=== PATIENT | female | born 1940 | race Caucasian/White ===

== ENCOUNTER 2018-04-27 08:19 | Inpatient (IN) | payer MEDICARE, OTHER ==
--- NOTE | 2018-04-27 08:39 | PDOC ---
History of Present Illness - General Chief Complaint: Syncope/Near Syncope Stated Complaint: SYNCOPE/NEAR SYNCOPE Time Seen by Provider: 04/27/18 08:29 History Source: Patient Exam Limitations: No Limitations - History of Present Illness Initial Comments: 04/27/18 10:13 Patient is a 78-year-old female with past medical history of hyperlipidemia, who presents to the emergency department today for syncopal episode occurring this morning. She states she got out of bed and was walking to the kitchen when she passed out. She states that she does not remember what happened and she woke up on the floor. She denies headache, chest pain, difficulty breathing, nausea prior to passing out. When she woke up she noticed a large bump to her forehead. Pt admits to cold like symptoms over the past three days. Past History - Travel Traveled outside of the country in the last 30 days: No Close contact w/someone who was outside of country & ill: No - Past Medical History Allergies/Adverse Reactions: Allergies Allergy/AdvReac Type Severity Reaction Status Date / Time No Known Allergies Allergy Verified 04/27/18 08:22 Home Medications: Ambulatory Orders Ranitidine [Zantac -] 150 mg PO ASDIR 04/27/18 Simvastatin [Zocor -] mg PO HS 04/27/18 Zolpidem Tartrate [Ambien] 5 mg PO HS 04/27/18 COPD: No GI Disorders: Yes (reflux) Hypercholesterolemia: Yes Other medical history: insomnia - Surgical History Appendectomy: Yes - Suicide/Smoking/Psychosocial Hx Smoking History: Never smoked Hx Alcohol Use: No Drug/Substance Use Hx: No Substance Use Type: None Review of Systems - Review of Systems Able to Perform ROS?: Yes Comments:: 04/27/18 08:45 CONSTITUTIONAL: Absent: fever, chills, diaphoresis, generalized weakness, malaise, loss of appetite HEENT: Present: throat pain Absent: rhinorrhea, nasal congestion,throat swelling, difficulty swallowing, mouth swelling, ear pain, eye pain, visual Changes CARDIOVASCULAR: Present: LOC Absent: chest pain, lpalpitations, irregular heart rate, peripheral edema RESPIRATORY: Present: cough Absent: shortness of breath, dyspnea with exertion, orthopnea, wheezing, stridor, hemoptysis GASTROINTESTINAL: Present: nausea Absent: abdominal pain, abdominal distension, vomiting, diarrhea , constipation, melena, hematochezia GENITOURINARY: Absent: dysuria, frequency, urgency, hesitancy, hematuria, flank pain, genital pain MUSCULOSKELETAL: Absent: myalgia, arthralgia, joint swelling SKIN: Absent: rash, itching, pallor HEMATOLOGIC/IMMUNOLOGIC: Absent: easy bleeding, easy bruising, lymphadenopathy, frequent infections ENDOCRINE: Absent: unexplained weight gain, unexplained weight loss, heat intolerance, cold intolerance NEUROLOGIC: Absent: headache, focal weakness or paresthesias, dizziness, unsteady gait, seizure, mental status changes, bladder or bowel incontinence PSYCHIATRIC: Absent: anxiety, depression, suicidal or homicidal ideation, hallucinations. Is the patient limited American proficient: No *Physical Exam - Vital Signs Last Vital Signs Temp Pulse Resp BP Pulse Ox 98.3 F 74 20 123/58 L 96 04/27/18 08:25 04/27/18 08:25 04/27/18 08:25 04/27/18 08:25 04/27/18 08:25 - Physical Exam Comments: 04/27/18 08:50 GENERAL: Well developed, well nourished. Awake and alert. No acute distress. Large hematoma to the L forehead. HEENT: Normocephalic, atraumatic. PERRLA, EOMI. No conjunctival pallor. Sclera are non- icteric. Moist mucous membranes. Oropharynx is clear. NECK: Supple. Full ROM. No midline tenderness. No JVD. Carotid pulses 2+ and symmetric , without bruits. No thyromegaly. No lymphadenopathy. CARDIOVASCULAR: Regular rate and rhythm. No murmurs, rubs, or gallops. Distal pulses are 2+ and symmetric. PULMONARY: No evidence of respiratory distress. Lungs clear to auscultation bilaterally. No wheezing, rales or rhonchi. ABDOMINAL: Soft. Non-tender. Non-distended. No rebound or guarding. No organomegaly. Normoactive bowel sounds. MUSCULOSKELETAL Normal range of motion at all joints. No bony deformities or tenderness. No CVA tenderness. EXTREMITIES: No cyanosis. No clubbing. No edema. No calf tenderness. SKIN: Warm and dry. Normal capillary refill. No rashes. No jaundice. NEUROLOGICAL: Alert, awake, appropriate. Cranial nerves 2-12 intact. No deficits to light touch and temperature in face, upper extremities and lower extremities. No motor deficits in the in face, upper extremities and lower extremities. Normoreflexic in the upper and lower extremities. Normal speech. Toes are down- going bilaterally. Gait is normal without ataxia. PSYCHIATRIC: Cooperative. Good eye contact. Appropriate mood and affect. Moderate Sedation - Procedure Monitoring Vital Signs: Procedure Monitoring Vital Signs Temperature 98.3 F 04/27/18 08:25 Pulse Rate 74 04/27/18 08:25 Respiratory Rate 20 04/27/18 08:25 Blood Pressure 123/58 L 04/27/18 08:25 O2 Sat by Pulse Oximetry (%) 96 04/27/18 08:25 Heart Score/ECG Review - History History: Moderately suspicious - Electrocardiogram EKG: Normal - Age Age: >/= 65 - Risk Factors Risk Factors Heart Score: Yes Hx Hypercholesterolemia Based on the list above the patient has:: 1-2 risk factors - Troponin Troponin: </= normal limit - Score Heart Score - Total: 4 ED Treatment Course - LABORATORY CBC & Chemistry Diagram: 04/27/18 09:10 04/27/18 09:10 Medical Decision Making - Medical Decision Making 04/27/18 12:34 Pt is a 78 y/o F with PMH of hyperlipidemia, who presents to the ED for a syncopal episode this morning. Pt also states she had cold like symptoms for the past 3 days -On exam, pt is AAOx3, neurologically intact. Hematoma to the L scalp. No lacerations noted. No pain to neck, trunk or extremities. -Pt had second near-syncopal episode in the ED. Episode lasted approximately 30 seconds and pt became bradycardic and diaphoretic. Symptoms resolved themselves. -Lab work shows no leukocytosis, or shift. H&H is stable. Troponin negative. -Lactic acid elevated at 2.2; two liters of fluid given. -Flu A positive -Tamiflu given -Head CT and C-Spine CT are negative for fractures, or bleed -EKG: rate 69 BPM, NSR. Normal intervals and axis. No acute ST-T wave changes -Suspect syncopal episodes from dehydration related to influenza diagnosis, but will admit to tele for further cardiovascular work up -Case discussed with SILVIA Sharp for Dr. Huff. Agrees to admission. *DC/Admit/Observation/Transfer Diagnosis at time of Disposition: Influenza A Syncope Qualifiers: Syncope type: unspecified Qualified Code(s): R55 - Syncope and collapse - Discharge Dispostion Condition at time of disposition: Guarded Decision to Admit order: Yes - Referrals - Patient Instructions - Post Discharge Activity
[2018-04-27] MEDS ORDERED: SODIUM CHLORIDE 1,000 ML IV STA ×2 (08:41→10:14)
[2018-04-27] MEDS ORDERED: ACETAMINOPHEN 1000 MG/100 ML VIAL (NON FORMULARY) IVPB ONE (08:41)
[2018-04-27] MEDS ORDERED: ONDANSETRON 4 MG/2 ML VIAL IVPUSH ONE (08:41)
[2018-04-27] MEDS ORDERED: ONDANSETRON 4 MG/2 ML VIAL ONE (09:15)
[2018-04-27] MEDS ORDERED: ACETAMINOPHEN INJECTION 100 ML IVPB ONE (09:15)
[2018-04-27 09:32] LABS: BASO % 0.8 % (0-2.0); EOS % 0.5 % (0-4.5); HEMATOCRIT 37.2 % (32.4-45.2); HEMOGLOBIN 13.1 GM/dL (10.7-15.3); LYMPH % 27.6 % (8-40); MCH 31.7 pg (25.7-33.7); MCHC 35.2 g/dl (32.0-36.0); MEAN CELL VOLUME 90.1 fl (80-96); MEAN PLT VOLUME 8.1 fl (7.5-11.1); MONO % 8.5 % (3.8-10.2); NEUT % 62.6 % (42.8-82.8); PLATELET COUNT 228 K/MM3 (134-434); RBC 4.13 M/mm3 (3.60-5.2); RDW 13.4 % (11.6-15.6); WHITE BLOOD COUNT 6.2 K/mm3 (4.0-10.0)
[2018-04-27 09:46] LABS: INR 1.06 (0.83-1.09); PROTHROMBIN TIME (PATIENT) 12.5 SEC (9.7-13.0)
[2018-04-27] MEDS ORDERED: OSELTAMIVIR PHOSPHATE 75 MG CAPSULE PO ONE (10:13)
[2018-04-27 10:35] LABS: ALBUMIN 3.4 g/dl (3.4-5.0); ALK PHOS 72 U/L (45-117); ANION GAP 7 MMOL/L (8-16); BILIRUBIN,TOTAL 0.2 mg/dL (0.2-1); BLOOD UREA NITROGEN 11 mg/dL (7-18); CALCIUM 8.4 mg/dL (8.5-10.1); CHLORIDE 108 mmol/L (98-107); CO2 27 mmol/L (21-32); CREATININE 0.9 mg/dL (0.55-1.3); GLUCOSE,RANDOM 150 mg/dL (74-106); MAGNESIUM 2.4 mg/dL (1.8-2.4); POTASSIUM 4.4 mmol/L (3.5-5.1); SGOT/AST 35 U/L (15-37); SGPT/ALT 22 U/L (13-61); SODIUM 141 mmol/L (136-145); TOT PROT 6.6 g/dl (6.4-8.2)
[2018-04-27] MEDS ORDERED: OSELTAMIVIR PHOSPHATE 75 MG CAPSULE ONE (11:43)
[2018-04-27 12:05] LABS: URINE APPEARANCE SLCLOUDY; URINE BILIRUBIN NEGATIVE (<2.0 mg/dL); URINE COLOR LTYELLOW; URINE GLUCOSE (UA) NEGATIVE (NEGATIVE); URINE KETONE TRACE (NEGATIVE); URINE LEUK ESTERASE 1+ (NEGATIVE); URINE NITRITE NEGATIVE (NEGATIVE); URINE PROTEIN NEGATIVE (NEGATIVE); URINE UROBILINOGEN NEGATIVE mg/dL (0.2-1.0)
[2018-04-27 12:12] LABS: EPI CELLS RARE /HPF (FEW); URINE BACTERIA RARE /hpf (NONE SEEN); URINE MUCUS RARE
--- NOTE | 2018-04-27 15:50 | ECHO ---
Name: GEORGINA ANDREWS Exam:Adult Echocardiogram Study Date: 04/27/2018 03:12 PM Age: 78 yrs Reason For Study: SYNCOPE Height: 63 in Weight: 140 lb BSA: 1.7 m2 MMode/2D Measurements & Calculations IVSd: 1.0 cm Ao root diam: 2.3 cm LVIDd: 3.7 cm ACS: 1.9 cm LVIDs: 2.9 cm LVPWd: 1.5 cm EDV(Teich): 58.0 ml LVOT diam: 1.9 cm ESV(Teich): 31.2 ml RV S Claudy: 10.7 cm/sec Doppler Measurements & Calculations Med Peak E' Claudy: 6.5 cm/sec Lat Peak E' Claudy: 8.1 cm/sec Left Ventricle Left ventricular systolic function is normal. Ejection Fraction = 50-55%. Right Ventricle The right ventricle is normal in size and function. Atria Normal left and right atrial size and function. Mitral Valve The mitral valve is normal in structure and function. There is no mitral valve stenosis. There is mil d mitral regurgitation. Tricuspid Valve The tricuspid valve is normal in structure and function. Aortic Valve The aortic valve opens well. There is mild aortic sclerosis.;. No hemodynamically significant valvula r aortic stenosis. No aortic regurgitation is present. Pulmonic Valve The pulmonic valve is not well seen, but is grossly normal. There is no pulmonic valvular stenosis. T here is no pulmonic valvular regurgitation. Great Vessels The aortic root is normal size. Pericardium/Pleura There is pericardial thickening and/or a small pericardial effusion. The pericardial space suggests o rganizing pericardial effusion. There are no echocardiographic indications of cardiac tamponade. Interpretation Summary Left ventricular systolic function is normal. Ejection Fraction = 50-55%. The right ventricle is normal in size and function. There is mild mitral regurgitation. The aortic valve opens well. There is mild aortic sclerosis.; There is pericardial thickening and/or a small pericardial effusion. The pericardial space suggests organizing pericardial effusion. There are no echocardiographic indications of cardiac tamponade. MD Johnson *Marlon 04/27/2018 03:50 PM
[2018-04-27 18:59] VITALS: BMI 25.7
--- NOTE | 2018-04-27 19:13 | EKG ---
Test Reason : Blood Pressure : / mmHG Vent. Rate : 069 BPM Atrial Rate : 069 BPM P-R Int : 124 ms QRS Dur : 086 ms QT Int : 376 ms P-R-T Axes : -18 -08 048 degrees QTc Int : 402 ms NORMAL SINUS RHYTHM CANNOT RULE OUT INFERIOR INFARCT , AGE UNDETERMINED ABNORMAL ECG NO PREVIOUS ECGS AVAILABLE Confirmed by MEGAN KHANNA MD ([id number]) on 04/27/2018 7:13:20 PM Referred By: Confirmed By:MEGAN KHANNA MD
[2018-04-27] MEDS: RANITIDINE HCL 150 MG TABLET (FP) PO SCH (21:48)
[2018-04-27] MEDS: ATORVASTATIN CA 10 MG TABLET (FP) PO SCH (21:48)
[2018-04-27] MEDS ORDERED: ZOLPIDEM TARTRATE 5 MG TABLET PO PRN (22:00)
[2018-04-28 07:57] LABS: BASO % 0.7 % (0-2.0); EOS % 0.9 % (0-4.5); HEMATOCRIT 33.8 % (32.4-45.2); HEMOGLOBIN 11.9 GM/dL (10.7-15.3); LYMPH % 58.7 % (8-40); MCH 31.6 pg (25.7-33.7); MCHC 35.2 g/dl (32.0-36.0); MEAN CELL VOLUME 89.9 fl (80-96); MEAN PLT VOLUME 7.7 fl (7.5-11.1); MONO % 9.5 % (3.8-10.2); NEUT % 30.2 % (42.8-82.8); PLATELET COUNT 196 K/MM3 (134-434); RBC 3.77 M/mm3 (3.60-5.2); RDW 13.5 % (11.6-15.6); WHITE BLOOD COUNT 3.2 K/mm3 (4.0-10.0)
[2018-04-28 08:43] LABS: ANION GAP 5 MMOL/L (8-16); BLOOD UREA NITROGEN 8 mg/dL (7-18); CALCIUM 8.3 mg/dL (8.5-10.1); CHLORIDE 109 mmol/L (98-107); CO2 28 mmol/L (21-32); CREATININE 0.7 mg/dL (0.55-1.3); GLUCOSE,RANDOM 84 mg/dL (74-106); POTASSIUM 4.3 mmol/L (3.5-5.1); SODIUM 143 mmol/L (136-145)
[2018-04-28] MEDS: RANITIDINE HCL 150 MG TABLET (FP) PO SCH ×2 (12:00→21:20)
--- NOTE | 2018-04-28 14:48 | HP ---
Admitting History and Physical - Admission History of Present Illness: Patient is a 78-year-old female with past medical history of hyperlipidemia, who presents to the emergency department today for syncopal episode occurring this morning. She states she got out of bed and was walking to the kitchen when she passed out. She states that she does not remember what happened and she woke up on the floor. She denies headache, chest pain, difficulty breathing, nausea prior to passing out. When she woke up she noticed a large bump to her forehead. Pt admits to cold like symptoms over the past three days. 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 Reproductive: Yes: Postmenopausal ...: No - Smoking History Smoking history: Never smoked Have you smoked in the past 12 months: No - Alcohol/Substance Use Hx Alcohol Use: No - Social History Usual Living Arrangement: Yes: With Child ADL: Family Assistance Home Medications - Allergies Allergies/Adverse Reactions: Allergies Allergy/AdvReac Type Severity Reaction Status Date / Time No Known Allergies Allergy Verified 04/27/18 08:22 - Home Medications Home Medications: Ambulatory Orders Ranitidine [Zantac -] 150 mg PO ASDIR 04/27/18 Simvastatin [Zocor -] mg PO HS 04/27/18 Zolpidem Tartrate [Ambien] 5 mg PO HS 04/27/18 Review of Systems - Review of Systems Constitutional: reports: Chills, Fever, Loss of Appetite, Malaise, Weakness Eyes: reports: No Symptoms HENT: reports: No Symptoms Neck: reports: No Symptoms Cardiovascular: denies: Chest Pain, Palpitations Respiratory: reports: Cough, Wheezing. denies: SOB, SOB on Exertion Gastrointestinal: reports: No Symptoms Genitourinary: reports: No Symptoms Breasts: reports: No Symptoms Reported Musculoskeletal: reports: No Symptoms Integumentary: reports: No Symptoms Neurological: reports: Pre-Existing Deficit Hematology/Lymphatic: reports: No Symptoms Psychiatric: reports: Depression Physical Examination Vital Signs: Vital Signs Temperature 97.9 F 04/28/18 06:00 Pulse Rate 58 L 04/28/18 06:00 Respiratory Rate 18 04/28/18 06:00 Blood Pressure 127/63 04/28/18 06:00 O2 Sat by Pulse Oximetry (%) 96 04/28/18 09:00 Labs: CBC, BMP 04/28/18 07:00 04/28/18 07:00 Problem List - Problems (1) Dementia Code(s): F03.90 - UNSPECIFIED DEMENTIA WITHOUT BEHAVIORAL DISTURBANCE (2) Influenza A Code(s): J10.1 - FLU DUE TO OTH IDENT INFLUENZA VIRUS W OTH RESP MANIFEST (3) Syncope Code(s): R55 - SYNCOPE AND COLLAPSE Qualifiers: Syncope type: unspecified Qualified Code(s): R55 - Syncope and collapse (4) Spinal stenosis at L4-L5 level Code(s): M48.06 - SPINAL STENOSIS, LUMBAR REGION * DO NOT USE *
--- NOTE | 2018-04-28 15:12 | CON.NEURO ---
Consult Consult Specialty:: NEUROLOGY-[facility] - History of Present Illness History of Present Illness: Patient is a 78-year-old female with past medical history of hyperlipidemia, who presents to the emergency department today for syncopal episode occurring this morning. She states she got out of bed and was walking to the kitchen when she passed out. She states that she does not remember what happened and she woke up on the floor. She denies headache, chest pain, difficulty breathing, nausea prior to passing out. When she woke up she noticed a large bump to her forehead. Pt admits to cold like symptoms over the past three days. Pt. tells me she had a sensation "as if i am going to pass out "(lightheadedness ") before passing out. Denies numbness/weakness/extranneous movements and all other neurologic symptoms. ED Note-Pt had second near-syncopal episode in the ED. Episode lasted approximately 30 seconds and pt became bradycardic and diaphoretic. Symptoms resolved themselves. -Lab work shows no leukocytosis, or shift. H&H is stable. Troponin negative. -Lactic acid elevated at 2.2; two liters of fluid given. -Flu A positive -Tamiflu given -Head CT and C-Spine CT are negative for fractures, or bleed -EKG: rate 69 BPM, NSR. Normal intervals and axis. No acute ST-T wave changes -Suspect syncopal episodes from dehydration related to influenza diagnosis, but will admit to tele for further cardiovascular work up -Case discussed with SILVIA Sharp for Dr. Huff. Agrees to admission. 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 ...: No - Alcohol/Substance Use Hx Alcohol Use: No - Smoking History Smoking history: Never smoked Have you smoked in the past 12 months: No - Social History ADL: Family Assistance Home Medications - Allergies Allergies/Adverse Reactions: Allergies Allergy/AdvReac Type Severity Reaction Status Date / Time No Known Allergies Allergy Verified 04/27/18 08:22 - Home Medications Home Medications: Ambulatory Orders Ranitidine [Zantac -] 150 mg PO ASDIR 04/27/18 Simvastatin [Zocor -] mg PO HS 04/27/18 Zolpidem Tartrate [Ambien] 5 mg PO HS 04/27/18 Physical Exam-Neuro Vital Signs: Vital Signs Temperature 97.9 F 04/28/18 06:00 Pulse Rate 58 L 04/28/18 06:00 Respiratory Rate 18 04/28/18 06:00 Blood Pressure 127/63 04/28/18 06:00 O2 Sat by Pulse Oximetry (%) 96 04/28/18 09:00 Labs: CBC, BMP 04/28/18 07:00 04/28/18 07:00 INR, PTT INR 1.06 (0.83-1.09) 04/27/18 09:10 - Neuro Exam Level Of Consciousness: Yes: Alert, Oriented to Person, Oriented to Place, Oriented to Time Mini Mental Exam: Intact att/conc DTR's: 1+ Left Brachioradialis, 1+ Right Brachioradialis, 1+ Left Achilles, 1+ Right Achilles, 2+ Left Bicep, 2+ Right Bicep, 2+ Left Tricep, 2+ Right Tricep Motor Strength: 5/5: Left Arm, Right Arm, Left Leg, Right Leg Gait: Normal Imaging - Results Cat Scan: Report Reviewed (Without acute abn.) Assessment/Plan Pt. appears to have had a syncopal episode?? dehydration/influenza. No evid. she had a seizure. Would cont. current care, please call as needed. Thank Melissa ram MD
--- NOTE | 2018-04-28 17:33 | PN ---
Progress Note (short form) - Note Progress Note: patient seen and examined in room daughter at bedside coughing tokerating PO well Vital Signs Period Temp Pulse Resp BP Sys/[place] Pulse Ox Last 24 Hr 97.9 F-99.4 F 52-72 18-20 110-134/57-74 96-98 neck supple heart S1/S2 re lung coarse rhonchi bilat abd soft non tender ext no edema no calf tenderness CBC, BMP 04/28/18 07:00 04/28/18 07:00 = influenza ++ Microbiology 04/27/18 11:30 Urine - Urine Clean Catch Urine Culture - Preliminary Lactose Fermenting Neg Bacilli Active Medications Albuterol/Ipratropium (Duoneb -) 1 amp NEB RQID [facility] Atorvastatin Calcium (Lipitor -) 10 mg PO HS [facility] Last Admin: 04/27/18 21:48 Dose: 10 mg Guaifenesin (Mucinex -) 600 mg PO BID [facility] Oseltamivir Phosphate (Tamiflu -) 75 mg PO BID [facility] Stop: 05/03/18 21:59 Ranitidine HCl (Zantac -) 150 mg PO BID [facility] Last Admin: 04/28/18 12:00 Dose: 150 mg Zolpidem Tartrate (Ambien -) 5 mg PO HS PRN PRN Reason: INSOMNIA # Syncope 2/2 dehydaration / influenza # INfluenza tamiflu nebulizer QID probable d/c in am Problem List - Problems (1) Dementia Code(s): F03.90 - UNSPECIFIED DEMENTIA WITHOUT BEHAVIORAL DISTURBANCE (2) Influenza A Code(s): J10.1 - FLU DUE TO OTH IDENT INFLUENZA VIRUS W OTH RESP MANIFEST (3) Syncope Code(s): R55 - SYNCOPE AND COLLAPSE Qualifiers: Syncope type: unspecified Qualified Code(s): R55 - Syncope and collapse (4) Spinal stenosis at L4-L5 level Code(s): M48.06 - SPINAL STENOSIS, LUMBAR REGION * DO NOT USE *
[2018-04-28] MEDS: ALBUTEROL SO4 2.5/IPRATROPIUM 0.5 INH SOL 3 ML VIAL.NEB. NEB SCH (20:18)
[2018-04-28] MEDS: ATORVASTATIN CA 10 MG TABLET (FP) PO SCH (21:19)
[2018-04-28] MEDS: OSELTAMIVIR PHOSPHATE 75 MG CAPSULE PO SCH (21:19)
[2018-04-28] MEDS: guaiFENesin 600 MG TABLET.ER (FP) PO SCH (21:20)
[2018-04-29] MEDS: ALBUTEROL SO4 2.5/IPRATROPIUM 0.5 INH SOL 3 ML VIAL.NEB. NEB SCH ×3 (09:00→16:19)
[2018-04-29] MEDS ORDERED: PT OWN MED DRAWER 7, Y5N ONE (10:00)
[2018-04-29] MEDS: RANITIDINE HCL 150 MG TABLET (FP) PO SCH ×2 (10:43→21:13)
[2018-04-29] MEDS: OSELTAMIVIR PHOSPHATE 75 MG CAPSULE PO SCH ×2 (10:43→21:13)
[2018-04-29] MEDS: guaiFENesin 600 MG TABLET.ER (FP) PO SCH ×2 (10:43→21:13)
--- NOTE | 2018-04-29 13:46 | PN ---
Progress Note (short form) - Note Progress Note: patient seen and examined in room comfortable reports has not been able to sleep over night due to wheezing on Neb treatment just had treatment and remains with coarse wheezing Vital Signs Period Temp Pulse Resp BP Sys/[place] Pulse Ox Last 24 Hr 97.6 F-98.3 F 52-63 18-20 134-158/57-86 96-99 neck supple heart S1/S2 re lung coarse rhonchi bilat abd soft non tender ext no edema no calf tenderness CBC, BMP 04/28/18 07:00 04/28/18 07:00 = influenza ++ Microbiology 04/27/18 11:30 Urine - Urine Clean Catch Urine Culture - Final Klebsiella Pneumoniae Active Medications Albuterol/Ipratropium (Duoneb -) 1 amp NEB RQID [facility] Last Admin: 04/29/18 12:00 Dose: 1 amp Albuterol/Ipratropium (Duoneb -) 1 amp NEB Q4H PRN PRN Reason: SHORTNESS OF BREATH Atorvastatin Calcium (Lipitor -) 10 mg PO HS [facility] Last Admin: 04/28/18 21:19 Dose: 10 mg Guaifenesin (Mucinex -) 600 mg PO BID [facility] Last Admin: 04/29/18 10:43 Dose: 600 mg Ceftriaxone Sodium 1 gm/ (Dextrose) 100 mls @ 200 mls/hr IVPB DAILY [facility]; Protocol Methylprednisolone Sodium Succinate (Solu-Medrol -) 40 mg IVPUSH Q8H-IV [facility] Oseltamivir Phosphate (Tamiflu -) 75 mg PO BID [facility] Stop: 05/03/18 21:59 Last Admin: 04/29/18 10:43 Dose: 75 mg Ranitidine HCl (Zantac -) 150 mg PO BID [facility] Last Admin: 04/29/18 10:43 Dose: 150 mg Zolpidem Tartrate (Ambien -) 5 mg PO HS PRN PRN Reason: INSOMNIA # Syncope 2/2 dehydaration / influenza # INfluenza / bronchospasm tamiflu / expectorant add IV steroids nebulizer QID and PRN # UTI Klebsiella S-Rocephin start today Problem List - Problems (1) Dementia Code(s): F03.90 - UNSPECIFIED DEMENTIA WITHOUT BEHAVIORAL DISTURBANCE (2) Influenza A Code(s): J10.1 - FLU DUE TO OTH IDENT INFLUENZA VIRUS W OTH RESP MANIFEST (3) Syncope Code(s): R55 - SYNCOPE AND COLLAPSE Qualifiers: Syncope type: unspecified Qualified Code(s): R55 - Syncope and collapse (4) Spinal stenosis at L4-L5 level Code(s): M48.06 - SPINAL STENOSIS, LUMBAR REGION * DO NOT USE *
[2018-04-29] MEDS ORDERED: ALBUTEROL SO4 2.5/IPRATROPIUM 0.5 INH SOL 3 ML VIAL.NEB. NEB PRN (13:52)
[2018-04-29] MEDS ORDERED: ACETAMINOPHEN 500 MG TABLET (FP) PO PRN (13:55)
[2018-04-29] MEDS ORDERED: cefTRIAXone SODIUM 1 GM VIAL ONE (15:04)
[2018-04-29] MEDS ORDERED: DEXTROSE 5%-WATER - 50 ML IVPB ONE (15:05)
[2018-04-29] MEDS: CEFTRIAXONE 1 GM in DEXTROSE 5%-WATER - 50 ML IVPB SCH (15:15)
[2018-04-29] MEDS: methylPREDNISolone NA SUCC 40 MG/1 ML VIAL IVPUSH SCH ×2 (15:15→20:13)
[2018-04-29] MEDS: ATORVASTATIN CA 10 MG TABLET (FP) PO SCH (21:13)
[2018-04-30] MEDS: methylPREDNISolone NA SUCC 40 MG/1 ML VIAL IVPUSH SCH ×2 (01:49→10:11)
[2018-04-30 06:52] LABS: BASO % 0.1 % (0-2.0); HEMATOCRIT 38.4 % (32.4-45.2); HEMOGLOBIN 12.6 GM/dL (10.7-15.3); LYMPH % 23.3 % (8-40); MCH 29.8 pg (25.7-33.7); MCHC 32.7 g/dl (32.0-36.0); MEAN CELL VOLUME 91.1 fl (80-96); MEAN PLT VOLUME 8.3 fl (7.5-11.1); MONO % 2.1 % (3.8-10.2); NEUT % 74.5 % (42.8-82.8); PLATELET COUNT 220 K/MM3 (134-434); RBC 4.21 M/mm3 (3.60-5.2); RDW 13.1 % (11.6-15.6); WHITE BLOOD COUNT 3.8 K/mm3 (4.0-10.0)
[2018-04-30 07:08] LABS: ANION GAP 8 MMOL/L (8-16); BLOOD UREA NITROGEN 17 mg/dL (7-18); CALCIUM 9.2 mg/dL (8.5-10.1); CHLORIDE 108 mmol/L (98-107); CO2 26 mmol/L (21-32); CREATININE 0.8 mg/dL (0.55-1.3); GLUCOSE,RANDOM 144 mg/dL (74-106); POTASSIUM 4.8 mmol/L (3.5-5.1); SODIUM 142 mmol/L (136-145)
[2018-04-30] MEDS: ALBUTEROL SO4 2.5/IPRATROPIUM 0.5 INH SOL 3 ML VIAL.NEB. NEB SCH ×2 (07:47→11:21)
[2018-04-30] MEDS ORDERED: PT OWN MED DRAWER 7, Y5N ONE (09:09)
--- NOTE | 2018-04-30 09:59 | DS ---
Physical Examination Vital Signs: Vital Signs Temperature 98.1 F 04/30/18 05:23 Pulse Rate 59 L 04/30/18 05:23 Respiratory Rate 18 04/30/18 05:23 Blood Pressure 146/65 04/30/18 05:23 O2 Sat by Pulse Oximetry (%) 96 04/29/18 20:52 Constitutional: Yes: Well Nourished Eyes: Yes: Conjunctiva Clear HENT: Yes: Normocephalic, Other (Hematoma lt side of forehead) Cardiovascular: Yes: Regular Rate and Rhythm Respiratory: Yes: Regular, CTA Bilaterally Gastrointestinal: Yes: Normal Bowel Sounds, Soft ...Rectal Exam: Yes: Deferred Renal/: Yes: WNL Breast(s): Yes: WNL Musculoskeletal: Yes: WNL Extremities: Yes: WNL Edema: No Peripheral Pulses WNL: Yes Integumentary: Yes: WNL Neurological: Yes: Alert, Oriented ...Motor Strength: WNL Psychiatric: Yes: Alert, Oriented Labs: CBC, BMP 04/30/18 05:30 04/30/18 05:30 Discharge Summary Reason For Visit: INFLUENZA TYPE A; SYNCOPE Current Active Problems Dementia (Acute) Influenza A (Acute) Syncope (Acute) Hospital Course: 78 y/o female with PMHx of HLD was admitted s/p fall after syncopal episode. Treated for flu. Pos UTI. DC home with Bactrim, Tamiflu and Nebulizer txs. VNS referral for safety/ fall precautions. Condition: Good - Instructions Referrals: Kelsie Huff MD [Primary Care Provider] - - Home Medications Comprehensive Discharge Medication List: Ambulatory Orders Ranitidine [Zantac -] 150 mg PO ASDIR 04/27/18 Simvastatin [Zocor -] mg PO HS 04/27/18 Zolpidem Tartrate [Ambien] 5 mg PO HS 04/27/18
[2018-04-30] MEDS ORDERED: DEXTROSE 5%-WATER - 50 ML IVPB ONE (10:08)
[2018-04-30] MEDS ORDERED: cefTRIAXone SODIUM 1 GM VIAL ONE (10:08)
[2018-04-30] MEDS: guaiFENesin 600 MG TABLET.ER (FP) PO SCH (10:11)
[2018-04-30] MEDS: RANITIDINE HCL 150 MG TABLET (FP) PO SCH (10:11)
[2018-04-30] MEDS: CEFTRIAXONE 1 GM in DEXTROSE 5%-WATER - 50 ML IVPB SCH (10:11)
[2018-04-30] MEDS: OSELTAMIVIR PHOSPHATE 75 MG CAPSULE PO SCH (10:12)
[2018-04-30 10:50] VITALS: BP 148/65; PULSE 81; TEMP 97.9
== END 2018-04-30 12:47 | disposition home or self-care (01) | DRG 194 ==
LOC: JER 08:19 → JERBED 12:21 → J4W 18:08
PROVIDERS: ADMIT Family Medicine; ATTEND Family Medicine
DX: J10.1 Influenza due to other identified influenza virus with other respiratory manifestations (principal); N39.0 Urinary tract infection, site not specified; F03.90 Unspecified dementia, unspecified severity, without behavioral disturbance, psychotic disturbance, mood disturbance, and anxiety; R55 Syncope and collapse; M48.061 Spinal stenosis, lumbar region without neurogenic claudication; E78.5 Hyperlipidemia, unspecified; B96.1 Klebsiella pneumoniae [K. pneumoniae] as the cause of diseases classified elsewhere; E86.0 Dehydration
CPT/HCPCS: 36415; 70450-TC; 71045-TC-FY; 72125-TC; 80048; 80053; 81003; 81015; 82550; 83605; 83735; 84439; 84443; 84484; 85025; 85610; 87086; 87186; 87804; 93005; 93010; 93306-TC; 94640; 99285-25; J0131; J7030

== ENCOUNTER 2019-12-17 15:44 | Inpatient (IN) | payer OTHER ==
[2019-12-17 15:56] VITALS: BMI 31.8
--- NOTE | 2019-12-17 16:16 | PDOC ---
History of Present Illness - General Chief Complaint: CVA/TIA Stated Complaint: POSSIBLE CVA Time Seen by Provider: 12/17/19 15:47 Past History - Medical History Allergies/Adverse Reactions: Allergies Allergy/AdvReac Type Severity Reaction Status Date / Time No Known Allergies Allergy Verified 08/12/19 14:27 Home Medications: Ambulatory Orders Simvastatin [Zocor -] 40 mg PO HS 04/27/18 Ascorbic Acid [Vitamin C -] 500 mg PO BID #14 tablet 08/15/19 Hydroxychloroquine So4 [Plaquenil -] 200 mg PO BID #4 tablet 08/15/19 Zinc Sulfate [Orazinc] 220 mg PO BID #14 capsule 08/15/19 COPD: No GI Disorders: Yes (reflux) Hypercholesterolemia: Yes - Surgical History Appendectomy: Yes - Reproductive History Is Patient Now?: No - Psycho-Social/Smoking History Smoking History: Never smoked Have you smoked in the past 12 months: No Information on smoking cessation initiated: No - Substance Abuse Hx (Audit-C & DAST Scrn) How often the patient has a drink containing alcohol: Never Score: In Men: 4 or > Positive; In Women: 3 or > Positive: 0 Screen Result (Pos requires Nsg. Audit-10AR): Negative In the last yr the pt used illegal drug/Rx for NonMed reason: No Score: Yes response is considered Positive: 0 Screen Result (Positive result requires Nsg. DAST-10): Negative *Physical Exam - Vital Signs Last Vital Signs Temp Pulse Resp BP Pulse Ox 98.4 F 80 20 175/80 H 97 12/17/19 15:52 12/17/19 15:52 12/17/19 15:52 12/17/19 15:52 12/17/19 15:52 NIH Stroke Scale - Last Known Well Date/Time & Onset Date Last Known Well: 12/17/19 Time Last Known Well: 14:30 - Initial Evaluation Level of consciousness: Alert Ask patient the month and their age: Answers both correctly Ask patient to open & close eyes; make fist and let go: Obeys both correctly Best gaze (horizontal eye movement): Normal Visual field testing: No visual field loss Facial paresis (Show teeth/raise eyebrows/close eyes tight): Normal symmetrical movement Motor Function: Left Arm: Normal Motor Function: Right Arm: Normal (extends arm 90 (or 45) degrees for 10 seconds without drift Motor Function: Left Leg: Normal (extends leg 30 degrees for 5 seconds without drift) Motor Function: Right Leg: Normal (extends leg 30 degrees for 5 seconds without drift) Limb Ataxia: No ataxia Sensory(Use pinprick test arms,legs,trunk,face/side to side): Normal Best language (Describe picture, name items, read sentences): No Aphasia Dysarthria (read several words): Normal articulation Extinction and Inattention: No abnormality - Total Score NIH Stroke Scale Score: 0 tPA Exclusion Checklist 0-3hr - Time Elapsed Date last known well: 12/17/19 Time last known well: 14:30 Elaspsed time: Day(s) and 3 Hour(s) and 25 Minutes - Thrombolytic Therapy Candidate Is the patient eligible for Thrombolytic Therapy?: No - Relative Exclusion Criteria 0-3h Stroke severity too mild (non-disabling): Yes - Ineligibility reason(s) Reasons No tPA given: See reason(s) noted above (Severity too mild, rapid resolution of sx) TIA Risk Factors - ABCD Score Age: Age = or > 60 Blood Pressure: DBP =/> 90 Clinical Features of TIA: Uni wk w/wo speech impair Duration: TIA duration 10-59 min Diabetes: No Total ABCD2 Score (0-7):: 5 Critical Care Time/MDM Note - Medical Decision Making Note: 12/17/19 16:11 HPI: 79yo jamaican-speaking F no PMH, no meds, BIBA from home for concern for CVA/TIA. USOH earlier today. Sitting relaxing with friends, LKN 1430, sudden onset slurred speech and R-sided facial droop noticed by friends, self-resolved in 10min. EMS arrived and pt was back at baseline, no neuro deficits, no slurred speech or facial droop. Pt states she felt a little weak and her mouth felt weak and her speech was slurred. Denies numbness/tingling, vision changes, weakness in arms or legs, headache, lightheadedness, vertigo, syncope, seizure, confusion, difficulty walking, hx CVA/TIA, hx heart or lung issues, CP, SOB, N/V, F/C, abdominal pain, trauma, head injury, back pain, neck pain. Pt does endorse 2mo worsening dyspnea and fatigue on exertion, especially walking up hills. Pt has never been to a cap sewer but requests for a cap sewer to see her while she's admitted here. Last PCP appt 2mo ago. PCP - Kelsie Huff ROS: Constitutional: Negative for chills, fever, fatigue, diaphoresis. HENT: Negative for sore throat, rhinorrhea, congestion. Eyes: Negative for visual disturbance. Respiratory: Negative for shortness of breath, cough, and wheezing. Cardiovascular: Positive for ALEJANDRA. Negative for chest pain, palpitations, and leg swelling. Gastrointestinal: Negative for abdominal pain, blood in stool, constipation, diarrhea, nausea, and vomiting. Genitourinary: Negative for dysuria, flank pain, and hematuria. Musculoskeletal: Negative for myalgias, back pain, and neck pain. Skin: Negative for rash. Neurological: Positive for facial droop, slurred speech. Negative for light- headedness, dizziness, vertigo, syncope, weakness, numbness and headaches. Psychiatric/Behavioral: Negative for behavioral problems and confusion. PE: Gen: Alert, NAD, comfortable-appearing. HEENT: PERRL, EOMI, MMM, NCAT. No conjunctival pallor. Sclera are non-icteric. Neck supple, no carotid bruits. CV: Regular rate and rhythm. No murmurs, rubs, or gallops. PULM: No resp distress. CTAB, no wheezes, rales, or rhonchi. ABD: soft, NT/ND, no rebound tenderness or guarding, no CVA tenderness. BACK: No TTP of c/t/l-spine. No step-offs or deformities. MSK: No bony deformities. 2+ pulses in all extremities. NEURO: AAOx3. PERRL. CN 2-12 intact. 5/5 strength in all extremities. Sensation to light touch intact in all extremities. No pronator drift. No dysmetria. No dysdiadochokinesia. No abnormal nystagmus. Normal gait. EXTREMITIES: No cyanosis. No clubbing. No edema. No calf tenderness. PSYCH: Normal mood and thought pattern. SKIN: Warm and dry. Normal capillary refill. No rashes. No jaundice. MDM: 79yo F no PMH, no meds, BIBA from home for concern for CVA/TIA. USOH earlier today. Sitting relaxing with friends, LKN 1430, sudden onset slurred speech and R-sided facial droop noticed by friends, self-resolved in 10min. Hypertensive 175/80, otherwise hemodynamically stable, afebrile, neurologically intact. Code martinez called. BGM 155. NIHSS 0 prior to and after CTH, ABCD 5. Due to rapid resolution of symptoms, pt not a TPA candidate. Ddx: TIA/CVA, ICH, metabolic derangement, anemia, infection, PNA, UTI, CHF, ACS/CT, arrhythmia, thyroid pathology -EKG -CXR -CTH -CBC,CMP,Cardiac profile,Lipid profile,Coags,TSH,UA/UC -Neuro consult -Dispo: admit for stroke r/o 12/17/19 16:22 CTH reviewed: negative for acute pathology -Aspirin 325mg -Discuss dual antiplatelet therapy (clopidogrel 300mg PO) with neuro consult 12/17/19 16:26 Discussed case with Neurologist Dr Holloway -Lipitor 80 -MRI brain w/o contrast -US carotid arteries -Does not recommend dual antiplatelet therapy. Just aspirin at this time. 12/17/19 16:34 EKG reviewed: normal sinus rhythm, 65bpm, normal axis, normal intervals, no TWIs, no ST elevations or depressions 12/17/19 17:13 CXR reviewed: no acute pathology 12/17/19 17:32 Labs reviewed. No concerning findings. Presentation most c/w TIA. Admit for TIA/CVA workup - call placed to Dr Huff's office, signed out to Dr Wood Discharge - Discharge Information Problems reviewed: Yes Clinical Impression/Diagnosis: Transient ischemic attack, ALEJANDRA (dyspnea on exertion) Condition: Stable - Admission Yes - Follow up/Referral - Patient Discharge Instructions - Post Discharge Activity
--- NOTE | 2019-12-17 16:18 | PDOC ---
Attending Attestation - Resident Resident Name: Angelica Roberts - ED Attending Attestation I have performed the following: I have examined & evaluated the patient, The case was reviewed & discussed with the resident, I agree w/resident's findings & plan - HPI HPI: 12/17/19 16:16 79 year old female with history of hypercholesterolemia presenting with transient episode of rt facial droop and slurred speech x 10 minutes, since resolved - Physicial Exam PE: 12/17/19 16:17 Agree with the resident's HPI and PE as documented in the electronic medical record. NAD, well appearing, EOMI, PERRL, nl conjunctiva, anicteric; neck supple. lungs clear, RRR, abdomen soft nontender. no rebound, guarding. Back nontender. AMAYA x4, no focal neuro deficits. Alert, oriented to person time and place. No carotid bruit, CN II-XII grossly intact. Strength prox and distally 5/5 throughout. Sensation grossly intact to light touch. AMAYA x4. No cerebellar signs, no dysmetria, bilateral finger to nose and heel to ornelas equal and symmetric. Speech clear. No peripheral edema. normal color for ethnicity, [facility]. - Medical Decision Making 12/17/19 16:17 Vital Signs Temp Pulse Resp BP Pulse Ox 98.4 F 80 20 175/80 H 97 12/17/19 15:52 12/17/19 15:52 12/17/19 15:52 12/17/19 15:52 12/17/19 15:52 Vital signs reviewed, within normal limits, mildly hypertensive 175/80. Otherwise no acute distress, No focal neurologic deficits at this time as documented She is able to ambulate, gait is stable Initial head CT without acute intracranial abnormalities. ASA antilipid therapy. Dr Holloway consult for suspected TIA We will admit for TIA work-up, neuro consultation and admission to tele/stroke, inpatient eval/MRI 12/18/19 16:23 Discharge - Discharge Information Problems reviewed: Yes Clinical Impression/Diagnosis: Transient ischemic attack, ALEJANDRA (dyspnea on exertion) Condition: Stable - Admission Yes - Follow up/Referral - Patient Discharge Instructions - Post Discharge Activity
[2019-12-17] MEDS ORDERED: ASPIRIN 81 MG CHEWABLE TABLETS PO ONE (16:21)
[2019-12-17 16:25] LABS: BASO % 0.2 % (0-2.0); EOS % 2.2 % (0-4.5); HEMATOCRIT 40.5 % (32.4-45.2); HEMOGLOBIN 13.5 GM/dL (10.7-15.3); LYMPH % 31.6 % (8-40); MCH 30.8 pg (25.7-33.7); MCHC 33.2 g/dl (32.0-36.0); MEAN CELL VOLUME 92.7 fl (80-96); MEAN PLT VOLUME 8.2 fl (7.5-11.1); MONO % 9.3 % (3.8-10.2); NEUT % 56.7 % (42.8-82.8); PLATELET COUNT 274 K/MM3 (134-434); RBC 4.37 M/mm3 (3.60-5.2); RDW 12.6 % (11.6-15.6); WHITE BLOOD COUNT 7.1 K/mm3 (4.0-10.0)
[2019-12-17] MEDS ORDERED: ATORVASTATIN CA 80 MG TABLET (FP) PO ONE (16:33)
[2019-12-17 16:36] LABS: INR 0.96 (0.83-1.09); PROTHROMBIN TIME (PATIENT) 11.3 SEC (9.7-13.0)
[2019-12-17] MEDS ORDERED: ASPIRIN COATED 81 MG TABLET.EC ONE (16:37)
[2019-12-17] MEDS ORDERED: ATORVASTATIN CA 80 MG TABLET (FP) ONE (16:37)
[2019-12-17 16:39] LABS: ACTIVATED PTT 30.8 SECONDS (25.2-36.5)
[2019-12-17 17:11] LABS: ALBUMIN 3.6 g/dl (3.4-5.0); ALK PHOS 72 U/L (45-117); ANION GAP 5 MMOL/L (8-16); BILIRUBIN,TOTAL 0.2 mg/dL (0.2-1); BLOOD UREA NITROGEN 11.8 mg/dL (7-18); CHLORIDE 107 mmol/L (98-107); CO2 28 mmol/L (21-32); CREATININE 0.7 mg/dL (0.55-1.3); GLUCOSE,RANDOM 117 mg/dL (74-106); POTASSIUM 4.1 mmol/L (3.5-5.1); SGOT/AST 23 U/L (15-37); SGPT/ALT 26 U/L (13-61); SODIUM 140 mmol/L (136-145); TOT PROT 6.9 g/dl (6.4-8.2)
--- NOTE | 2019-12-17 17:43 | HP ---
Admitting History and Physical - Admission Chief Complaint: Acute onset of slurred speech and right sided facial droop. History of Present Illness: This 79 yr old female with PMH of Covid 19 infection in 08/2019, intermittent chest tightness and dyspnea on mild physical exertion of 3 to 4 months duration, s/p appendectomy, hysterectomy, laser eye surgery admitted via ER with an acute onset of slurred speech and right facial droop. 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 Cardiovascular: Yes: Other (Chest tightness on mild physical exertion) Pulmonary: Yes: Other (Dyspnea on mild physical exertion) Gastrointestinal: No: Ascites, Cancer, Constipation, Crohn's Disease, Diverticulitis, Diverticulosis, Esophageal Varices, Gastritis, GERD, GI Bleed, Hemorrhoids, Hiatal Hernia, Inflamatory Bowel Disease, Irritable Bowel Disease, Pancreatitis, Peptic Ulcer Disease, Ulcerative Colitis, Other Hepatobiliary: No: Cirrhosis, Cholelithiasis, Cholecystitis, Choledocholithiasis, Hepatitis A, Hepatitis B, Hepatitis C, Other Renal/: No: Renal Failure, Renal Inusuff, BPH, Cancer, Hematuria, Hemodialysis, Neurogenic Bladder, Renal Calculi, UTI, Other Reproductive: No: Ectopic , Endometriosis, Fibroids, PID, Polycystic Ovary Syndrome, Postmenopausal, Other ...: No Heme/Onc: No: Anemia, B12 Deficiency, Bleeding Disorder, Cancer, Current Chemotherapy, Current Radiation Therapy, Hemochromatosis, Hypercoaguable State, Myeloproliferative Synd, Sickle Cell Disease, Sickle Cell Trait, Thrombocytopenia, Other Infectious Disease: Yes: Other (Personal hx of Covid 19 infection in 09/17.) Psych: No: Addictions, Anxiety, Bipolar, Depression, Panic, Psychosis, Schizophrenia, Other Musculoskeletal: No: Bursitis, Chronic low back pain, Hemiparesis, Hemiplegia, Osteoarthritis, Paraplegia, Other Rheumatology: No: Fibromyalgia, Gout, Lupus, Rheumatoid Arthritis, Sarcoidosis, Vasculitis, Other ENT: No: Allergic Rhinitis, Sinusitis, Other Endocrine: No: Harrison's Disease, [place]'s Disease, Diabetes Insipidus, Diabetes Mellitus, Hyperparathyroidism, Hyperthyroidism, Hypothyroidism, Osteopenia, SIADH, Other Dermatology: No: Basal Cell, Cellulitis, Eczema, Melanoma, Psoriasis, Squamous Cell, Other - Past Surgical History Past Surgical History: Yes: Appendectomy, Hysterectomy - Smoking History Smoking history: Never smoked Have you smoked in the past 12 months: No - Alcohol/Substance Use Hx Alcohol Use: No - Social History ADL: Family Assistance Home Medications - Allergies Allergies/Adverse Reactions: Allergies Allergy/AdvReac Type Severity Reaction Status Date / Time No Known Allergies Allergy Verified 08/12/19 14:27 - Home Medications Home Medications: Ambulatory Orders Simvastatin [Zocor -] 40 mg PO HS 04/27/18 Ascorbic Acid [Vitamin C -] 500 mg PO BID #14 tablet 08/15/19 Hydroxychloroquine So4 [Plaquenil -] 200 mg PO BID #4 tablet 08/15/19 Zinc Sulfate [Orazinc] 220 mg PO BID #14 capsule 08/15/19 Review of Systems - Review of Systems Constitutional: reports: No Symptoms Eyes: reports: No Symptoms HENT: reports: No Symptoms Neck: reports: No Symptoms Cardiovascular: reports: Other (chest tightness on physical exertion) Respiratory: reports: SOB on Exertion Gastrointestinal: reports: No Symptoms Genitourinary: reports: No Symptoms Breasts: reports: No Symptoms Reported Musculoskeletal: reports: No Symptoms Integumentary: reports: No Symptoms Neurological: reports: Change in Speech, Other (right facial droop) Endocrine: reports: No Symptoms Hematology/Lymphatic: reports: No Symptoms Psychiatric: reports: No Symptoms Physical Examination Vital Signs: Vital Signs Temperature 98.4 F 12/17/19 15:52 Pulse Rate 80 12/17/19 15:52 Respiratory Rate 20 12/17/19 15:52 Blood Pressure 175/80 H 12/17/19 15:52 O2 Sat by Pulse Oximetry (%) 97 12/17/19 15:52 Constitutional: Yes: Well Nourished, No Distress, Calm Eyes: Yes: Conjunctiva Clear, EOM Intact HENT: Yes: Atraumatic, Normocephalic Neck: Yes: Supple, Trachea Midline Cardiovascular: Yes: Regular Rate and Rhythm Respiratory: Yes: Regular, CTA Bilaterally Gastrointestinal: Yes: Normal Bowel Sounds, Soft ...Rectal Exam: Yes: Deferred Renal/: Yes: WNL Breast(s): Yes: WNL Musculoskeletal: Yes: WNL Extremities: Yes: WNL Edema: No Peripheral Pulses WNL: Yes Integumentary: Yes: WNL Neurological: Yes: Facial Droop (right) ...Motor Strength: WNL Psychiatric: Yes: WNL Labs: CBC, BMP 12/17/19 15:50 12/17/19 15:50 Imaging - Results Cat Scan: Report Reviewed MRI: Report Reviewed EKG: Report Reviewed Other: Report Reviewed (lab data reviewed) Problem List - Problems (1) H/O hysterectomy for benign disease Code(s): Z90.710 - ACQUIRED ABSENCE OF BOTH CERVIX AND UTERUS (2) History of appendectomy Code(s): Z90.49 - ACQUIRED ABSENCE OF OTHER SPECIFIED PARTS OF DIGESTIVE TRACT (3) Chest tightness Code(s): R07.89 - OTHER CHEST PAIN (4) Dyspnea Code(s): R06.00 - DYSPNEA, UNSPECIFIED (5) ALEJANDRA (dyspnea on exertion) Code(s): R06.00 - DYSPNEA, UNSPECIFIED (6) Transient ischemic attack Code(s): G45.9 - TRANSIENT CEREBRAL ISCHEMIC ATTACK, UNSPECIFIED (7) COVID-19 virus infection Code(s): U07.1 - COVID POSITIVE (8) Dementia Code(s): F03.90 - UNSPECIFIED DEMENTIA WITHOUT BEHAVIORAL DISTURBANCE (9) Spinal stenosis at L4-L5 level Code(s): M48.06 - SPINAL STENOSIS, LUMBAR REGION * DO NOT USE * (10) Suspected 2019 novel coronavirus infection Code(s): R68.89 - OTHER GENERAL SYMPTOMS AND SIGNS Assessment/Plan Assessment/plan: acute TIA, acute slurred speech and right facial droop, HTN, personal hx of Covid 19 infection, chest tightness and dyspnea on physical exertion, HLD, hypertriglyceridemia; DVT/GI prophylaxis with SQ Lovenox and Pantoprazole, atorvastatin for HLD, Ramipril for HTN, consult to Neurology and Cardiology, carotid doppler, aspirin, omega 3 for hypertriglyceridemia.
[2019-12-17 17:51] LABS: CHOLESTEROL 169 mg/dL (50-200); HDL CHOLESTEROL 51 mg/dL (40-60); LDL CHOLESTEROL (ONLY SJRH) 89 mg/dL (5-100); TRIGLYCERIDES 294 mg/dL (0-150)
[2019-12-17] MEDS ORDERED: PANTOPRAZOLE 40 MG TABLET ONE (20:08)
[2019-12-17] MEDS ORDERED: ENOXAPARIN NA (PORCINE) 40 MG/0.4 ML DISP.SYRIN SQ ONE (20:10)
[2019-12-17] MEDS: ENOXAPARIN NA (PORCINE) 40 MG/0.4 ML DISP.SYRIN SQ SCH (20:23)
[2019-12-17] MEDS: PANTOPRAZOLE 40 MG TABLET PO SCH (20:23)
[2019-12-17 20:31] LABS: PH,URINE 5.5 (5.0-8.0); URINE APPEARANCE CLEAR; URINE BILIRUBIN NEGATIVE (NEGATIVE); URINE COLOR YELLOW; URINE GLUCOSE (UA) NEGATIVE (NEGATIVE); URINE KETONE NEGATIVE (NEGATIVE); URINE LEUK ESTERASE NEGATIVE (NEGATIVE); URINE NITRITE NEGATIVE (NEGATIVE); URINE PROTEIN NEGATIVE (NEGATIVE); URINE UROBILINOGEN 0.2 mg/dL (0.2-1.0)
[2019-12-17] MEDS: OMEGA-3 ACID ETHYL ESTERS (FATTY-ACIDS) 1 GM CAPSULE (FP) PO SCH (21:13)
[2019-12-17] MEDS: RAMIPRIL 2.5 MG CAPSULE (FP) PO SCH (21:13)
[2019-12-17] MEDS ORDERED: ATORVASTATIN CA 20 MG TABLET (FP) PO SCH (22:00)
[2019-12-18 07:14] LABS: EOS % 2.4 % (0-4.5); HEMATOCRIT 37.7 % (32.4-45.2); HEMOGLOBIN 12.6 GM/dL (10.7-15.3); LYMPH % 35.7 % (8-40); MCH 30.4 pg (25.7-33.7); MCHC 33.5 g/dl (32.0-36.0); MEAN CELL VOLUME 90.8 fl (80-96); MEAN PLT VOLUME 7.9 fl (7.5-11.1); MONO % 8.1 % (3.8-10.2); NEUT % 52.8 % (42.8-82.8); PLATELET COUNT 259 K/MM3 (134-434); RBC 4.15 M/mm3 (3.60-5.2); RDW 13.3 % (11.6-15.6); WHITE BLOOD COUNT 6.1 K/mm3 (4.0-10.0)
[2019-12-18 07:29] LABS: ALBUMIN 3.3 g/dl (3.4-5.0); BILIRUBIN,TOTAL 0.6 mg/dL (0.2-1); BLOOD UREA NITROGEN 11.7 mg/dL (7-18); CALCIUM 8.7 mg/dL (8.5-10.1); CREATININE 0.8 mg/dL (0.55-1.3); POTASSIUM 4.1 mmol/L (3.5-5.1); TOT PROT 6.3 g/dl (6.4-8.2)
[2019-12-18] MEDS ORDERED: PT OWN MED DRAWER 7, Y5N ONE ×2 (08:57→21:12)
[2019-12-18] MEDS: OMEGA-3 ACID ETHYL ESTERS (FATTY-ACIDS) 1 GM CAPSULE (FP) PO SCH ×2 (09:15→21:14)
[2019-12-18] MEDS: ENOXAPARIN NA (PORCINE) 40 MG/0.4 ML DISP.SYRIN SQ SCH (09:15)
[2019-12-18] MEDS: PANTOPRAZOLE 40 MG TABLET PO SCH (09:15)
--- NOTE | 2019-12-18 09:23 | EKG ---
Test Reason : Blood Pressure : / mmHG Vent. Rate : 065 BPM Atrial Rate : 065 BPM P-R Int : 146 ms QRS Dur : 086 ms QT Int : 398 ms P-R-T Axes : 001 010 058 degrees QTc Int : 413 ms NORMAL SINUS RHYTHM CANNOT RULE OUT INFERIOR INFARCT (CITED ON OR BEFORE 27-APR-2018) ABNORMAL ECG WHEN COMPARED WITH ECG OF 12-AUG-2019 14:45, QUESTIONABLE CHANGE IN INITIAL FORCES OF INFERIOR LEADS Confirmed by Isidro Hand MD ([id number]) on 12/18/2019 9:22:48 AM Referred By: Confirmed By:Isidro Hand MD
--- NOTE | 2019-12-18 09:35 | CON.CARD ---
Consult Consult Specialty:: Cardiology Referred by:: Dr. Basilio Reason for Consultation:: chest tightness, dyspnea, TIA - History of Present Illness Chief Complaint: chest tightness, dyspnea History of Present Illness: This 79 yr old female with PMH of Covid 19 infection in 08/2019, hyperlipidemia, intermittent chest tightness and dyspnea on mild physical exertion of 3 to 4 months duration, s/p appendectomy, hysterectomy, laser eye surgery admitted via ER with an acute onset of slurred speech and right facial droop lasting 10 minutes, since resolved, brain MRI w/o acute strokes, carotid US showed LICA 50-70%, she is currently asymptomatic, denies near or true syncope, palpitations, orthopnea, PND or LE edema. 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 Cardio/Vascular: Yes: Other (Chest tightness on mild physical exertion) Pulmonary: Yes: Other (Dyspnea on mild physical exertion) Gastrointestinal: No: Ascites, Cancer, Constipation, Crohn's Disease, Diverticulitis, Diverticulosis, Esophageal Varices, Gastritis, GERD, GI Bleed, Hemorrhoids, Hiatal Hernia, Inflamatory Bowel Disease, Irritable Bowel Disease, Pancreatitis, Peptic Ulcer Disease, Ulcerative Colitis, Other Hepatobiliary: No: Cirrhosis, Cholelithiasis, Cholecystitis, Choledocholithiasis, Hepatitis A, Hepatitis B, Hepatitis C, Other Renal/: No: Renal Failure, Renal Inusuff, BPH, Cancer, Hematuria, Hemodialysis, Neurogenic Bladder, Renal Calculi, UTI, Other ...: No Infectious Disease: Yes: Other (Personal hx of Covid 19 infection in 09/17.) Psych: No: Addictions, Anxiety, Bipolar, Depression, Panic, Psychosis, Schizophrenia, Other Musculoskeletal: No: Bursitis, Chronic low back pain, Hemiparesis, Hemiplegia, Osteoarthritis, Paraplegia, Other Rheumatology: No: Fibromyalgia, Gout, Lupus, Rheumatoid Arthritis, Sarcoidosis, Vasculitis, Other ENT: No: Allergic Rhinitis, Sinusitis, Other Endocrine: No: Leandro's Disease, [place]'s Disease, Diabetes Insipidus, Diabetes Mellitus, Hyperparathyroidism, Hyperthyroidism, Hypothyroidism, Oste openia, SIADH, Other Dermatology: No: Basal Cell, Cellulitis, Eczema, Melanoma, Psoriasis, Squamous Cell, Other - Past Surgical History Past Surgical History: Yes: Appendectomy, Hysterectomy - Alcohol/Substance Use Hx Alcohol Use: No - Smoking History Smoking history: Never smoked Have you smoked in the past 12 months: No - Social History ADL: Family Assistance Home Medications - Allergies Allergies/Adverse Reactions: Allergies Allergy/AdvReac Type Severity Reaction Status Date / Time No Known Allergies Allergy Verified 08/12/19 14:27 - Home Medications Home Medications: Ambulatory Orders Simvastatin [Zocor -] 40 mg PO HS 04/27/18 Ascorbic Acid [Vitamin C -] 500 mg PO BID #14 tablet 08/15/19 Hydroxychloroquine So4 [Plaquenil -] 200 mg PO BID #4 tablet 08/15/19 Zinc Sulfate [Orazinc] 220 mg PO BID #14 capsule 08/15/19 Review of Systems - Review of Systems Cardiovascular: reports: Chest Pain Respiratory: reports: SOB on Exertion Neurological: reports: Change in Speech Vital Signs: Vital Signs Temperature 97.8 F 12/18/19 09:11 Pulse Rate 71 12/18/19 09:11 Respiratory Rate 16 12/18/19 09:11 Blood Pressure 136/64 12/18/19 09:11 O2 Sat by Pulse Oximetry (%) 96 12/18/19 09:11 Constitutional: Yes: No Distress, Calm Neck: Yes: Supple Respiratory: Yes: Regular, CTA Bilaterally Gastrointestinal: Yes: Normal Bowel Sounds, Soft Cardiovascular: Yes: Regular Rate and Rhythm JVD: No Carotid Bruit: No Heart Sounds: Yes: S1, S2 Edema: No - Other Data Labs, Other Data: CBC, BMP 12/18/19 06:02 12/18/19 06:02 INR, PTT INR 0.96 (0.83-1.09) 12/17/19 15:50 Troponin, BNP 12/17/19 15:50 Troponin I < 0.02 Troponin, BNP 12/17/19 15:50 Troponin I < 0.02 NSR @ 65 w/o ST-T changes Tele No PAF Echo: Pending Ejection Fraction %: LVEF > or = 40 % Imaging - Results Chest X-ray: Report Reviewed (NAD) Problem List - Problems (1) Mixed hyperlipidemia Code(s): E78.2 - MIXED HYPERLIPIDEMIA (2) Chest tightness Code(s): R07.89 - OTHER CHEST PAIN (3) ALEJANDRA (dyspnea on exertion) Code(s): R06.00 - DYSPNEA, UNSPECIFIED (4) Transient ischemic attack Code(s): G45.9 - TRANSIENT CEREBRAL ISCHEMIC ATTACK, UNSPECIFIED (5) Dementia Code(s): F03.90 - UNSPECIFIED DEMENTIA WITHOUT BEHAVIORAL DISTURBANCE Qualifiers: Dementia type: unspecified type Dementia behavioral disturbance: without behavioral disturbance Qualified Code(s): F03.90 - Unspecified dementia without behavioral disturbance (6) Hypertensive heart disease Code(s): I11.9 - HYPERTENSIVE HEART DISEASE WITHOUT HEART FAILURE Qualifiers: Heart failure presence: without heart failure Qualified Code(s): I11.9 - Hypertensive heart disease without heart failure Assessment/Plan 04/27/2018 Echo: Normal LV size and fxn, mild MR 1. Acute slurred speech and right facial droop c/w acute TIA since resolved 2. ALEJANDRA and chest tightness with exertion r/o CAD 3. HTN 4. Mixed hyperlipidemia P1. Continue Lipitor 20 qd, Lovaza 2 bid, ramipril 2.5 qd, ASA 81 qd, f/u repeat echo, campus monitor r/o PAF 2. Pharm stress as outpatient r/o CAD 3. Extended arrhythmia monitoring as outpatient if PAF not seen on telemetry 4. Encourage ambulation, PT as tolerated 5. Thank you for consultative opportunity
[2019-12-18] MEDS: RAMIPRIL 2.5 MG CAPSULE (FP) PO SCH (10:28)
--- NOTE | 2019-12-18 10:56 | PN ---
Progress Note, Physician Chief Complaint: Patient seen and examined at the bedside, no acute events from last night, afebrile, no dyspnea or chest pain. History of Present Illness: This 79 yr old female with PMH of HTN, hypertriglyceridemia, s/p Covid 19 infection in August of 2019, dyspnea and chest tightness on physical exertion admitted via ER with an acute TIA, acute slurred speech and right facial droop. - Current Medication List Current Medications: Active Medications Atorvastatin Calcium (Lipitor -) 20 mg PO [facility] Enoxaparin Sodium (Lovenox -) 40 mg SQ DAILY [facility] Last Admin: 12/18/19 09:15 Dose: 40 mg Documented by: [id number] Ethyl Esters (Lovaza -) 2 gm PO BID [facility] Last Admin: 12/18/19 09:15 Dose: 2 gm Documented by: Pantoprazole Sodium (Protonix -) 40 mg PO DAILY [facility] Last Admin: 12/18/19 09:15 Dose: 40 mg Documented by: Ramipril (Altace -) 2.5 mg PO DAILY [facility] Last Admin: 12/18/19 10:28 Dose: 2.5 mg Documented by: - Objective Vital Signs: Vital Signs Temperature 97.8 F 12/18/19 09:11 Pulse Rate 71 12/18/19 09:11 Respiratory Rate 16 12/18/19 09:11 Blood Pressure 136/64 12/18/19 09:11 O2 Sat by Pulse Oximetry (%) 96 12/18/19 09:11 Constitutional: Yes: Well Nourished, No Distress, Calm Eyes: Yes: Conjunctiva Clear, EOM Intact HENT: Yes: Atraumatic, Normocephalic Neck: Yes: Supple, Trachea Midline Cardiovascular: Yes: Regular Rate and Rhythm Respiratory: Yes: Regular, CTA Bilaterally Gastrointestinal: Yes: Normal Bowel Sounds, Soft ...Rectal Exam: Yes: Deferred Genitourinary: Yes: WNL Breast(s): Yes: WNL Musculoskeletal: Yes: WNL Extremities: Yes: WNL Edema: No Peripheral Pulses WNL: Yes Integumentary: Yes: WNL Neurological: Yes: WNL ...Motor Strength: WNL Psychiatric: Yes: WNL Labs: CBC, BMP 12/18/19 06:02 12/18/19 06:02 INR, PTT INR 0.96 (0.83-1.09) 12/17/19 15:50 - ....Imaging Other: Report Reviewed (lab data reviewed) Problem List - Problems (1) H/O hysterectomy for benign disease Code(s): Z90.710 - ACQUIRED ABSENCE OF BOTH CERVIX AND UTERUS (2) History of appendectomy Code(s): Z90.49 - ACQUIRED ABSENCE OF OTHER SPECIFIED PARTS OF DIGESTIVE TRACT (3) Chest tightness Code(s): R07.89 - OTHER CHEST PAIN (4) Dyspnea Code(s): R06.00 - DYSPNEA, UNSPECIFIED (5) ALEJANDRA (dyspnea on exertion) Code(s): R06.00 - DYSPNEA, UNSPECIFIED (6) Transient ischemic attack Code(s): G45.9 - TRANSIENT CEREBRAL ISCHEMIC ATTACK, UNSPECIFIED (7) COVID-19 virus infection Code(s): U07.1 - COVID POSITIVE (8) Dementia Code(s): F03.90 - UNSPECIFIED DEMENTIA WITHOUT BEHAVIORAL DISTURBANCE (9) Spinal stenosis at L4-L5 level Code(s): M48.06 - SPINAL STENOSIS, LUMBAR REGION * DO NOT USE * (10) Suspected 2019 novel coronavirus infection Code(s): R68.89 - OTHER GENERAL SYMPTOMS AND SIGNS Assessment/Plan Assessment/plan: acute TIA, acute slurred speech and right facial droop, dyspnea and chest tightness on physical exertion, HTN, hypertriglyceridemia; DVT/GI prop hylaxis with SQ Lovenox and Pantoprazole, atorvastatin for HLD, omega 3 for hypertriglyceridemia, Ramipril for HTN, consult to Neurology and Cardiology pending, physical therapy.
[2019-12-18] MEDS: ASPIRIN 81 MG CHEWABLE TABLETS PO SCH (12:25)
--- NOTE | 2019-12-18 18:11 | CON.NEURO ---
Consult - Past Medical History [employer]: Yes: Dementia Cardio/Vascular: Yes: Other (Chest tightness on mild physical exertion) Pulmonary: Yes: Other (Dyspnea on mild physical exertion) Gastrointestinal: No: Ascites, Cancer, Constipation, Crohn's Disease, Diverticulitis, Diverticulosis, Esophageal Varices, Gastritis, GERD, GI Bleed, Hemorrhoids, Hiatal Hernia, Inflamatory Bowel Disease, Irritable Bowel Disease, Pancreatitis, Peptic Ulcer Disease, Ulcerative Colitis, Other Hepatobiliary: No: Cirrhosis, Cholelithiasis, Cholecystitis, Choledocholithiasis, Hepatitis A, Hepatitis B, Hepatitis C, Other Renal/: No: Renal Failure, Renal Inusuff, BPH, Cancer, Hematuria, Hemodialysis, Neurogenic Bladder, Renal Calculi, UTI, Other ...: No Infectious Disease: Yes: Other (Personal hx of Covid 19 infection in 09/17.) Psych: No: Addictions, Anxiety, Bipolar, Depression, Panic, Psychosis, Schizophrenia, Other Musculoskeletal: No: Bursitis, Chronic low back pain, Hemiparesis, Hemiplegia, Osteoarthritis, Paraplegia, Other Rheumatology: No: Fibromyalgia, Gout, Lupus, Rheumatoid Arthritis, Sarcoidosis, Vasculitis, Other ENT: No: Allergic Rhinitis, Sinusitis, Other Endocrine: No: Leandro's Disease, Parma's Disease, Diabetes Insipidus, Diabetes Mellitus, Hyperparathyroidism, Hyperthyroidism, Hypothyroidism, Osteopenia, SIADH, Other Dermatology: No: Basal Cell, Cellulitis, Eczema, Melanoma, Psoriasis, Squamous Cell, Other - Past Surgical History Past Surgical History: Yes: Appendectomy, Hysterectomy - Alcohol/Substance Use Hx Alcohol Use: No - Smoking History Smoking history: Never smoked Have you smoked in the past 12 months: No - Social History ADL: Family Assistance Home Medications - Allergies Allergies/Adverse Reactions: Allergies Allergy/AdvReac Type Severity Reaction Status Date / Time No Known Allergies Allergy Verified 08/12/19 14:27 - Home Medications Home Medications: Ambulatory Orders Simvastatin [Zocor -] 40 mg PO HS 04/27/18 Ascorbic Acid [Vitamin C -] 500 mg PO BID #14 tablet 08/15/19 Hydroxychloroquine So4 [Plaquenil -] 200 mg PO BID #4 tablet 08/15/19 Zinc Sulfate [Orazinc] 220 mg PO BID #14 capsule 08/15/19 Physical Exam-Neuro Vital Signs: Vital Signs Temperature 97.9 F 12/18/19 18:00 Pulse Rate 65 12/18/19 18:00 Respiratory Rate 20 12/18/19 18:00 Blood Pressure 137/75 12/18/19 18:00 O2 Sat by Pulse Oximetry (%) 97 12/18/19 18:00 Labs: CBC, BMP 12/18/19 06:02 12/18/19 06:02 INR, PTT INR 0.96 (0.83-1.09) 12/17/19 15:50 Assessment/Plan cc Slurring of speech, facial droopiness , which resolved. HPI 79 Year old polish speaking female, saw with her daughter. She came to hospital or slurring of speech and facial droopiness , which resolved. She was taking simvastatin 40 mg at home, no aspirin. Patient denies smoking or previous tia. She has ct head which was unremarkable, mri of brain is uremarkable. Her carotid shows 70 percent stenosis. Patient is feeling back to normal. No other focal neurological symptoms Allergies Allergy/AdvReac Type Severity Reaction Status Date / Time No Known Allergies Allergy Verified 08/12/19 14:27 Home Medications: Simvastatin [Zocor -] 40 mg PO HS 04/27/18 Ascorbic Acid [Vitamin C -] 500 mg PO BID #14 tablet 08/15/19 Hydroxychloroquine So4 [Plaquenil -] 200 mg PO BID #4 tablet 08/15/19 Zinc Sulfate [Orazinc] 220 mg PO BID #14 capsule 08/15/19 - Vital Signs Last Vital Signs Temp Pulse Resp BP Pulse Ox 98.4 F 80 20 175/80 H 97 12/17/19 15:52 12/17/19 15:52 12/17/19 15:52 12/17/19 15:52 12/17/19 15:52 Neurological examination Alert oriented x 2, speech is normal, vss, afebrile eomi, pupils reactive and no face asymmetry moving all ext sensation is normal ct head, mri is normal carotid ultrasound left ica 70 percent stenosis Assessment/Plan TIA, with left ica stenosis Plan: incresae lipitor ot 80 mg once for at least one month - vascular surgery consult - life style modifications - tele monitoring - discussed with mother and daughter Thanking you so much Jimi Holloway MD
[2019-12-18] MEDS: ATORVASTATIN CA 80 MG TABLET (FP) PO SCH (21:14)
[2019-12-18] MEDS ORDERED: ATORVASTATIN CA 20 MG TABLET (FP) PO SCH (22:00)
--- NOTE | 2019-12-19 08:29 | PN ---
Progress Note, Physician Chief Complaint: Patient seen and examined at the bedside, no acute events from last night, no facial droop, no slurred speech. History of Present Illness: This 79 yr old female with PMH of HTN, HLD, s/p Covid 19 infection in August of 2019 admitted via ER with an acute TIA, slurred speech, right facial droop, and a left internal carotid artery stenosis 70%. - Current Medication List Current Medications: Active Medications Aspirin (Asa -) 81 mg PO DAILY [facility] Last Admin: 12/18/19 12:25 Dose: 81 mg Documented by: Atorvastatin Calcium (Lipitor -) 80 mg PO HS [facility] Last Admin: 12/18/19 21:14 Dose: 80 mg Documented by: Enoxaparin Sodium (Lovenox -) 40 mg SQ DAILY [facility] Last Admin: 12/18/19 09:15 Dose: 40 mg Documented by: [id number] Ethyl Esters (Lovaza -) 2 gm PO BID [facility] Last Admin: 12/18/19 21:14 Dose: 2 gm Documented by: Pantoprazole Sodium (Protonix -) 40 mg PO DAILY [facility] Last Admin: 12/18/19 09:15 Dose: 40 mg Documented by: Ramipril (Altace -) 2.5 mg PO DAILY [facility] Last Admin: 12/18/19 10:28 Dose: 2.5 mg Documented by: - Objective Vital Signs: Vital Signs Temperature 97.6 F 12/19/19 06:00 Pulse Rate 61 12/19/19 06:00 Respiratory Rate 18 12/19/19 06:00 Blood Pressure 129/57 L 12/19/19 06:00 O2 Sat by Pulse Oximetry (%) 96 12/19/19 06:00 Constitutional: Yes: Well Nourished, No Distress, Calm Eyes: Yes: Conjunctiva Clear, EOM Intact HENT: Yes: Atraumatic, Normocephalic Neck: Yes: Supple, Trachea Midline Cardiovascular: Yes: Regular Rate and Rhythm Respiratory: Yes: Regular, CTA Bilaterally Gastrointestinal: Yes: Normal Bowel Sounds, Soft ...Rectal Exam: Yes: Deferred Genitourinary: Yes: WNL Breast(s): Yes: WNL Musculoskeletal: Yes: WNL Edema: No Peripheral Pulses WNL: Yes Integumentary: Yes: WNL Neurological: Yes: Facial Droop (right facial droop resolved) ...Motor Strength: WNL Psychiatric: Yes: WNL Labs: CBC, BMP 12/18/19 06:02 12/18/19 06:02 INR, PTT INR 0.96 (0.83-1.09) 12/17/19 15:50 - ....Imaging Other: Report Reviewed (lab data reviewed) Problem List - Problems (1) H/O hysterectomy for benign disease Code(s): Z90.710 - ACQUIRED ABSENCE OF BOTH CERVIX AND UTERUS (2) History of appendectomy Code(s): Z90.49 - ACQUIRED ABSENCE OF OTHER SPECIFIED PARTS OF DIGESTIVE TRACT (3) Chest tightness Code(s): R07.89 - OTHER CHEST PAIN (4) Dyspnea Code(s): R06.00 - DYSPNEA, UNSPECIFIED (5) ALEJANDRA (dyspnea on exertion) Code(s): R06.00 - DYSPNEA, UNSPECIFIED (6) Transient ischemic attack Code(s): G45.9 - TRANSIENT CEREBRAL ISCHEMIC ATTACK, UNSPECIFIED (7) COVID-19 virus infection Code(s): U07.1 - COVID POSITIVE (8) Dementia Code(s): F03.90 - UNSPECIFIED DEMENTIA WITHOUT BEHAVIORAL DISTURBANCE Qualifiers: Dementia type: unspecified type Dementia behavioral disturbance: without behavioral disturbance Qualified Code(s): F03.90 - Unspecified dementia without behavioral disturbance (9) Spinal stenosis at L4-L5 level Code(s): M48.06 - SPINAL STENOSIS, LUMBAR REGION * DO NOT USE * (10) Suspected 2019 novel coronavirus infection Code(s): R68.89 - OTHER GENERAL SYMPTOMS AND SIGNS (11) Stenosis of left internal carotid artery Code(s): I65.22 - OCCLUSION AND STENOSIS OF LEFT CAROTID ARTERY Assessment/Plan Assessment/plan: acute TIA, acute slurred speech and right facial droop, left internal carotid artery stenosis 70%, HTN, HLD, s/p Covid 19 infection in August 2019, dyspnea and chest tightness on physical exertion; SQ Lovenox and aspirin for TIA, consult to Vascular Surgeon pending, atorvastatin for HLD, omega 3 for hypertriglyceridemia, Ramipril for HTN, DVT/GI prophylaxis, physical therapy.
[2019-12-19] MEDS ORDERED: PT OWN MED DRAWER 7, Y5N ONE ×3 (09:00→21:13)
--- NOTE | 2019-12-19 09:28 | PN ---
Progress Note, Physician History of Present Illness: No further recurrence of slurred speech and right facial droop lasting 10 minutes, since resolved, brain MRI w/o acute strokes, carotid US showed LICA 50- 70, she is currently asymptomatic, denies near or true syncope, palpitations, orthopnea, PND or LE edema. - Current Medication List Current Medications: Active Medications Aspirin (Asa -) 81 mg PO DAILY [facility] Last Admin: 12/18/19 12:25 Dose: 81 mg Documented by: Atorvastatin Calcium (Lipitor -) 80 mg PO HS [facility] Last Admin: 12/18/19 21:14 Dose: 80 mg Documented by: Enoxaparin Sodium (Lovenox -) 40 mg SQ DAILY [facility] Last Admin: 12/18/19 09:15 Dose: 40 mg Documented by: [id number] Ethyl Esters (Lovaza -) 2 gm PO BID [facility] Last Admin: 12/18/19 21:14 Dose: 2 gm Documented by: Pantoprazole Sodium (Protonix -) 40 mg PO DAILY [facility] Last Admin: 12/18/19 09:15 Dose: 40 mg Documented by: Ramipril (Altace -) 2.5 mg PO DAILY [facility] Last Admin: 12/18/19 10:28 Dose: 2.5 mg Documented by: - Objective Vital Signs: Vital Signs Temperature 97.6 F 12/19/19 06:00 Pulse Rate 61 12/19/19 06:00 Respiratory Rate 18 12/19/19 06:00 Blood Pressure 129/57 L 12/19/19 06:00 O2 Sat by Pulse Oximetry (%) 96 12/19/19 06:00 Constitutional: Yes: No Distress, Calm Neck: Yes: Supple, Other (Left bruits) Cardiovascular: Yes: Regular Rate and Rhythm Respiratory: Yes: Regular, CTA Bilaterally Gastrointestinal: Yes: Normal Bowel Sounds, Soft Extremities: Yes: Internal Rotation Labs: CBC, BMP 12/18/19 06:02 12/18/19 06:02 INR, PTT INR 0.96 (0.83-1.09) 12/17/19 15:50 - ....Imaging EKG: Report Reviewed (Tele: NSR no PAF) Problem List - Problems (1) Mixed hyperlipidemia Code(s): E78.2 - MIXED HYPERLIPIDEMIA (2) Chest tightness Code(s): R07.89 - OTHER CHEST PAIN (3) ALEJANDRA (dyspnea on exertion) Code(s): R06.00 - DYSPNEA, UNSPECIFIED (4) Transient ischemic attack Code(s): G45.9 - TRANSIENT CEREBRAL ISCHEMIC ATTACK, UNSPECIFIED (5) Dementia Code(s): F03.90 - UNSPECIFIED DEMENTIA WITHOUT BEHAVIORAL DISTURBANCE Qualifiers: Dementia type: unspecified type Dementia behavioral disturbance: without behavioral disturbance Qualified Code(s): F03.90 - Unspecified dementia without behavioral disturbance (6) Hypertensive heart disease Code(s): I11.9 - HYPERTENSIVE HEART DISEASE WITHOUT HEART FAILURE Qualifiers: Heart failure presence: without heart failure Qualified Code(s): I11.9 - Hypertensive heart disease without heart failure (7) Stenosis of left internal carotid artery Code(s): I65.22 - OCCLUSION AND STENOSIS OF LEFT CAROTID ARTERY Assessment/Plan 11/2019 carotid US showed LICA 50-70% 04/27/2018 Echo: Normal LV size and fxn, mild MR 1. Acute slurred speech and right facial droop c/w acute TIA since resolved 2. ALEJANDRA and chest tightness with exertion r/o CAD 3. HTN 4. Mixed hyperlipidemia 5. 50-70% LICA stenosis P1. Increased Lipitor 80 qd, Lovaza 2 bid, ramipril 2.5 qd, ASA 81 qd, f/u repeat echo, court recording monitor r/o PAF, f/u neck CTA 2. Pharm stress as outpatient r/o CAD 3. Extended arrhythmia monitoring as outpatient if PAF not seen on telemetry 4. Encourage ambulation, PT as tolerated
[2019-12-19] MEDS: RAMIPRIL 2.5 MG CAPSULE (FP) PO SCH (10:25)
[2019-12-19] MEDS: ASPIRIN 81 MG CHEWABLE TABLETS PO SCH (10:25)
[2019-12-19] MEDS: ENOXAPARIN NA (PORCINE) 40 MG/0.4 ML DISP.SYRIN SQ SCH (10:26)
[2019-12-19] MEDS: PANTOPRAZOLE 40 MG TABLET PO SCH (10:26)
[2019-12-19] MEDS: OMEGA-3 ACID ETHYL ESTERS (FATTY-ACIDS) 1 GM CAPSULE (FP) PO SCH ×2 (10:26→21:15)
--- NOTE | 2019-12-19 11:14 | CONSULT ---
- Consultation REQUESTING PROVIDER: CONSULT REQUEST: We have been asked to surgically evaluate this patient for carotid stenosis. PCP:Pawan Wood HISTORY OF PRESENT ILLNESS: 79 y/o F w/ PMHx Covid 19 infection in 08/2019, hyperlipidemia, admitted for workup after TIA sxs. Pt reports she was a t her friends house yesterday sitting at the table having a conversation when she began to feel the right side of her face drooping and was unable to speak. Reports the sxs lasted 10 minutes prior to resolving completely. Denies ue/le weakness or amaurosis fugax, confusion during the event. Denies prior h/o cva/tia. Vascular consulted for evaluation. Brain MRI w/o acute strokes, carotid US shows LICA 50-70%. At baseline, pt ambulates without use of assisting devices, able to complete all adls independently, lives alone, daughter close by. Denies h/o tobacco use. PMHx: as abovee PSHx: Appendectomy, Hysterectomy Home Medications Medication Instructions Recorded Simvastatin [Zocor -] 40 mg PO HS 04/27/18 Ascorbic Acid [Vitamin C -] 500 mg PO BID #14 tablet 08/15/19 Hydroxychloroquine So4 [Plaquenil 200 mg PO BID #4 tablet 08/15/19 -] Zinc Sulfate [Orazinc] 220 mg PO BID #14 capsule 08/15/19 Allergies Allergy/AdvReac Type Severity Reaction Status Date / Time No Known Allergies Allergy Verified 08/12/19 14:27 REVIEW OF SYSTEMS: CONSTITUTIONAL: Absent: fever, chills CARDIOVASCULAR: Absent: chest pain, syncope RESPIRATORY: Absent: cough, shortness of breath GASTROINTESTINAL: Absent: abdominal pain, abdominal distension PHYSICAL EXAM: GENERAL: Awake, alert, and fully oriented, in no acute distress. HEAD: Normal with no signs of trauma. 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 B/L les 5/5 dorsi/plantarflexion, silt b/l les Vital Signs Temperature 98.1 F 12/19/19 10:23 Pulse Rate 67 12/19/19 10:23 Respiratory Rate 18 12/19/19 10:23 Blood Pressure 131/70 12/19/19 10:23 O2 Sat by Pulse Oximetry (%) 96 12/19/19 10:23 Lab Results WBC 6.1 K/mm3 (4.0-10.0) 12/18/19 06:02 RBC 4.15 M/mm3 (3.60-5.2) 12/18/19 06:02 Hgb 12.6 GM/dL (10.7-15.3) 12/18/19 06:02 Hct 37.7 % (32.4-45.2) 12/18/19 06:02 MCV 90.8 fl (80-96) 12/18/19 06:02 MCHC 33.5 g/dl (32.0-36.0) 12/18/19 06:02 RDW 13.3 % (11.6-15.6) 12/18/19 06:02 Plt Count 259 K/MM3 (134-434) 12/18/19 06:02 INR 0.96 (0.83-1.09) 12/17/19 15:50 Sodium 144 mmol/L (136-145) 12/18/19 06:02 Potassium 4.1 mmol/L (3.5-5.1) 12/18/19 06:02 Chloride 109 mmol/L (98-107) H 12/18/19 06:02 Carbon Dioxide 28 mmol/L (21-32) 12/18/19 06:02 Anion Gap 7 MMOL/L (8-16) L 12/18/19 06:02 BUN 11.7 mg/dL (7-18) 12/18/19 06:02 Creatinine 0.8 mg/dL (0.55-1.3) 12/18/19 06:02 Random Glucose 87 mg/dL (74-106) 12/18/19 06:02 Calcium 8.7 mg/dL (8.5-10.1) 12/18/19 06:02 Blood Type O POSITIVE 12/17/19 15:50 Antibody Screen Negative 12/17/19 15:50 A/P: 79 y/o F w/ PMHx Covid 19 infection in 08/2019, hyperlipidemia, admitted for workup after TIA sxs. Vascular consulted for evaluation of L ICA stenosis. recent tia w/ 50-75% stenosis of L ICA CTA neck ordered for further evaluation will follow up d/w attending Dr Verdugo
--- NOTE | 2019-12-19 13:46 | PN ---
Progress Note (short form) - Note Progress Note: c Slurring of speech, facial droopiness , which resolved. HPI 79 Year old citizen of [place] speaking female, saw with her daughter. She came to hospital or slurring of speech and facial droopiness , which resolved. She was taking simvastatin 40 mg at home, no aspirin. Patient denies smoking or previous tia. She has ct head which was unremarkable, mri of brain is uremarkable. Her carotid shows 70 percent stenosis. Patient is feeling back to normal. continue lipitor and aspirin vascular surgery consult appreciated Neurological examination Alert oriented x 2, speech is normal, vss, afebrile eomi, pupils reactive and no face asymmetry moving all ext sensation is normal ct head, mri is normal carotid ultrasound left ica 70 percent stenosis Assessment/Plan TIA, with left ica stenosis, no new symptoms Plan: continue lipitor and asprin - vascular surgery consult - life style modifications - tele monitoring - vascular surgery consult appreciated Thanking you so much Jimi Holloway MD
[2019-12-19] MEDS: ATORVASTATIN CA 80 MG TABLET (FP) PO SCH (21:15)
[2019-12-20 07:17] LABS: BASO % 0.8 % (0-2.0); EOS % 3.2 % (0-4.5); HEMATOCRIT 38.9 % (32.4-45.2); HEMOGLOBIN 13.1 GM/dL (10.7-15.3); LYMPH % 29.2 % (8-40); MCH 30.9 pg (25.7-33.7); MCHC 33.7 g/dl (32.0-36.0); MEAN CELL VOLUME 91.6 fl (80-96); MONO % 8.8 % (3.8-10.2); PLATELET COUNT 271 K/MM3 (134-434); RBC 4.24 M/mm3 (3.60-5.2); RDW 12.9 % (11.6-15.6); WHITE BLOOD COUNT 6.5 K/mm3 (4.0-10.0)
[2019-12-20 07:34] LABS: ALBUMIN 3.5 g/dl (3.4-5.0); BILIRUBIN,TOTAL 0.3 mg/dL (0.2-1); CALCIUM 9.1 mg/dL (8.5-10.1); CREATININE 0.8 mg/dL (0.55-1.3); POTASSIUM 4.1 mmol/L (3.5-5.1); TOT PROT 6.5 g/dl (6.4-8.2)
[2019-12-20 07:37] LABS: BLOOD UREA NITROGEN 19.2 mg/dL (7-18)
--- NOTE | 2019-12-20 07:54 | PN ---
Progress Note, Physician Chief Complaint: Patient seen and examined at the bedside, no acute events from last night, no dyspnea, no chest pain. History of Present Illness: This 79 yr old female with PMH of HTN, HLD, s/p Covid 19 infection in August of 2019 admitted via ER with an acute TIA, slurred speech, right facial droop, and a left internal carotid artery stenosis 50 to 70%. - Current Medication List Current Medications: Active Medications Aspirin (Asa -) 81 mg PO DAILY [facility] Last Admin: 12/19/19 10:25 Dose: 81 mg Documented by: Atorvastatin Calcium (Lipitor -) 80 mg PO HS [facility] Last Admin: 12/19/19 21:15 Dose: 80 mg Documented by: Enoxaparin Sodium (Lovenox -) 40 mg SQ DAILY [facility] Last Admin: 12/19/19 10:26 Dose: 40 mg Documented by: [id number] Ethyl Esters (Lovaza -) 2 gm PO BID [facility] Last Admin: 12/19/19 21:15 Dose: 2 gm Documented by: Pantoprazole Sodium (Protonix -) 40 mg PO DAILY [facility] Last Admin: 12/19/19 10:26 Dose: 40 mg Documented by: Ramipril (Altace -) 2.5 mg PO DAILY [facility] Last Admin: 12/19/19 10:25 Dose: 2.5 mg Documented by: - Objective Vital Signs: Vital Signs Temperature 97.6 F 12/20/19 05:36 Pulse Rate 65 12/20/19 05:36 Respiratory Rate 18 12/20/19 05:36 Blood Pressure 127/72 12/20/19 05:36 O2 Sat by Pulse Oximetry (%) 98 12/20/19 05:36 Constitutional: Yes: Well Nourished, No Distress, Calm Eyes: Yes: Conjunctiva Clear, EOM Intact HENT: Yes: Atraumatic, Normocephalic Neck: Yes: Supple, Trachea Midline Cardiovascular: Yes: Regular Rate and Rhythm Respiratory: Yes: Regular, CTA Bilaterally Gastrointestinal: Yes: Normal Bowel Sounds, Soft ...Rectal Exam: Yes: Deferred Genitourinary: Yes: WNL Breast(s): Yes: WNL Musculoskeletal: Yes: WNL Extremities: Yes: WNL Edema: No Peripheral Pulses WNL: Yes Integumentary: Yes: WNL Neurological: Yes: WNL ...Motor Strength: WNL Psychiatric: Yes: WNL Labs: CBC, BMP 12/20/19 05:58 12/20/19 05:58 INR, PTT INR 0.96 (0.83-1.09) 12/17/19 15:50 - ....Imaging Other: Report Reviewed (lab data reviewed, Neurology and Vascular notes read and appreciated) Problem List - Problems (1) H/O hysterectomy for benign disease Code(s): Z90.710 - ACQUIRED ABSENCE OF BOTH CERVIX AND UTERUS (2) History of appendectomy Code(s): Z90.49 - ACQUIRED ABSENCE OF OTHER SPECIFIED PARTS OF DIGESTIVE TRACT (3) Chest tightness Code(s): R07.89 - OTHER CHEST PAIN (4) Dyspnea Code(s): R06.00 - DYSPNEA, UNSPECIFIED (5) ALEJANDRA (dyspnea on exertion) Code(s): R06.00 - DYSPNEA, UNSPECIFIED (6) Transient ischemic attack Code(s): G45.9 - TRANSIENT CEREBRAL ISCHEMIC ATTACK, UNSPECIFIED (7) COVID-19 virus infection Code(s): U07.1 - COVID POSITIVE (8) Dementia Code(s): F03.90 - UNSPECIFIED DEMENTIA WITHOUT BEHAVIORAL DISTURBANCE Qualifiers: Dementia type: unspecified type Dementia behavioral disturbance: without behavioral disturbance Qualified Code(s): F03.90 - Unspecified dementia without behavioral disturbance (9) Spinal stenosis at L4-L5 level Code(s): M48.06 - SPINAL STENOSIS, LUMBAR REGION * DO NOT USE * (10) Suspected 2018 novel coronavirus infection Code(s): R68.89 - OTHER GENERAL SYMPTOMS AND SIGNS (11) Stenosis of left internal carotid artery Code(s): I65.22 - OCCLUSION AND STENOSIS OF LEFT CAROTID ARTERY Assessment/Plan Assessment/plan: acute TIA, acute slurred speech and right facial droop resolved, HTN, HLD, s/p Covid 19 infection in August 2019, left internal carotid artery stenosis 70%; SQ Lovenox, aspirin for TIA, DVT/GI prophylaxis, physical therapy, Neck CTA pending, atorvastatin for TIA and HLD, omega 3 for hypertriglyceridemia, Ramipril for HTN.
--- NOTE | 2019-12-20 08:42 | PN ---
Progress Note, Physician History of Present Illness: No further recurrence of slurred speech and right facial droop lasting 10 minutes, since resolved, brain MRI w/o acute strokes, carotid US showed LICA 50- 70, neck CTA w/o sig stenosis, she is currently asymptomatic, denies near or true syncope, palpitations, orthopnea, PND or LE edema. - Current Medication List Current Medications: Active Medications Aspirin (Asa -) 81 mg PO DAILY [facility] Last Admin: 12/19/19 10:25 Dose: 81 mg Documented by: Atorvastatin Calcium (Lipitor -) 80 mg PO HS [facility] Last Admin: 12/19/19 21:15 Dose: 80 mg Documented by: Enoxaparin Sodium (Lovenox -) 40 mg SQ DAILY [facility] Last Admin: 12/19/19 10:26 Dose: 40 mg Documented by: [id number] Ethyl Esters (Lovaza -) 2 gm PO BID [facility] Last Admin: 12/19/19 21:15 Dose: 2 gm Documented by: Pantoprazole Sodium (Protonix -) 40 mg PO DAILY [facility] Last Admin: 12/19/19 10:26 Dose: 40 mg Documented by: Ramipril (Altace -) 2.5 mg PO DAILY [facility] Last Admin: 12/19/19 10:25 Dose: 2.5 mg Documented by: - Objective Vital Signs: Vital Signs Temperature 97.6 F 12/20/19 05:36 Pulse Rate 65 12/20/19 05:36 Respiratory Rate 18 12/20/19 05:36 Blood Pressure 127/72 12/20/19 05:36 O2 Sat by Pulse Oximetry (%) 98 12/20/19 05:36 Constitutional: Yes: No Distress, Calm Neck: Yes: Supple Cardiovascular: Yes: Regular Rate and Rhythm Respiratory: Yes: Regular, CTA Bilaterally Gastrointestinal: Yes: Normal Bowel Sounds, Soft Edema: No Labs: CBC, BMP 12/20/19 05:58 12/20/19 05:58 INR, PTT INR 0.96 (0.83-1.09) 12/17/19 15:50 - ....Imaging EKG: Report Reviewed (Tele: NSR no PAF) Problem List - Problems (1) Mixed hyperlipidemia Code(s): E78.2 - MIXED HYPERLIPIDEMIA (2) Chest tightness Code(s): R07.89 - OTHER CHEST PAIN (3) ALEJANDRA (dyspnea on exertion) Code(s): R06.00 - DYSPNEA, UNSPECIFIED (4) Transient ischemic attack Code(s): G45.9 - TRANSIENT CEREBRAL ISCHEMIC ATTACK, UNSPECIFIED (5) Dementia Code(s): F03.90 - UNSPECIFIED DEMENTIA WITHOUT BEHAVIORAL DISTURBANCE Qualifiers: Dementia type: unspecified type Dementia behavioral disturbance: without behavioral disturbance Qualified Code(s): F03.90 - Unspecified dementia without behavioral disturbance (6) Hypertensive heart disease Code(s): I11.9 - HYPERTENSIVE HEART DISEASE WITHOUT HEART FAILURE Qualifiers: Heart failure presence: without heart failure Qualified Code(s): I11.9 - Hypertensive heart disease without heart failure Assessment/Plan 11/2019 carotid US showed LICA 50-70% 04/27/2018 Echo: Normal LV size and fxn, mild MR 1. Acute slurred speech and right facial droop c/w acute TIA since resolved 2. ALEJANDRA and chest tightness with exertion r/o CAD 3. HTN 4. Mixed hyperlipidemia 5. Non-obstructive LICA stenosis P1. Continue Lipitor 80 qd, Lovaza 2 bid, ramipril 2.5 qd, ASA 81 qd, f/u repeat echo, threat monitoring analyst r/o PAF, neck CTA report negative for sig ICA stenosis 2. Pharm stress as outpatient r/o CAD 3. Extended arrhythmia monitoring as outpatient if PAF not seen on telemetry 4. Encourage ambulation, PT as tolerated, d/c planning
[2019-12-20] MEDS: OMEGA-3 ACID ETHYL ESTERS (FATTY-ACIDS) 1 GM CAPSULE (FP) PO SCH ×2 (09:13→21:07)
[2019-12-20] MEDS: RAMIPRIL 2.5 MG CAPSULE (FP) PO SCH (09:14)
[2019-12-20] MEDS: ASPIRIN 81 MG CHEWABLE TABLETS PO SCH (09:14)
[2019-12-20] MEDS: ENOXAPARIN NA (PORCINE) 40 MG/0.4 ML DISP.SYRIN SQ SCH (09:14)
[2019-12-20] MEDS: PANTOPRAZOLE 40 MG TABLET PO SCH (09:15)
--- NOTE | 2019-12-20 12:16 | PN ---
Progress Note (short form) - Note Progress Note: 79 Year old mauritian speaking female, saw with her daughter. She came to hospital or slurring of speech and facial droopiness , which resolved. She was taking simvastatin 40 mg at home, no aspirin. Patient denies smoking or previous tia. She has ct head which was unremarkable, mri of brain is uremarkable. Her carotid shows 70 percent stenosis. Patient is feeling back to normal. continue lipitor and aspirin vascular surgery consult appreciated , cta results pending. No new complain Neurological examination Alert oriented x 2, speech is normal, vss, afebrile eomi, pupils reactive and no face asymmetry moving all ext sensation is normal ct head, mri is normal carotid ultrasound left ica 70 percent stenosis Assessment/Plan TIA, with left ica stenosis, no new symptoms Plan: continue lipitor and asprin - vascular surgery consult appreciated and cta results are pending - life style modifications - tele monitoring - can be discharged, if no acute intervention Thanking you so much Jimi Holloway MD
[2019-12-20] MEDS ORDERED: PT OWN MED DRAWER 7, Y5N ONE ×2 (20:55→21:09)
[2019-12-20] MEDS: ATORVASTATIN CA 80 MG TABLET (FP) PO SCH (21:10)
--- NOTE | 2019-12-21 06:20 | DS ---
Physical Examination Vital Signs: Vital Signs Temperature 97.6 F 12/21/19 02:10 Pulse Rate 62 12/21/19 02:10 Respiratory Rate 18 12/21/19 02:10 Blood Pressure 115/61 12/21/19 02:10 O2 Sat by Pulse Oximetry (%) 96 12/21/19 02:10 Labs: CBC, BMP 12/20/19 05:58 12/20/19 05:58 Discharge Summary Problems reviewed: Yes Reason For Visit: DYSPNEA ON EXERTION TRANSIENT ICHEMIC ATTACK Current Active Problems Chest tightness (Acute) ALEJANDRA (dyspnea on exertion) (Acute) Dyspnea (Acute) H/O hysterectomy for benign disease (Acute) History of appendectomy (Acute) Hypertensive heart disease (Acute) Mixed hyperlipidemia (Acute) Transient ischemic attack (Acute) Condition: Stable - Instructions Diet, Activity, Other Instructions: Continue present meds. Activity as tolerated. See an [employer] for a thyroid nodule. Get a list of Endocrinologists from the hospital. Follow up with Dr. Huff within one week. Total time spent over 30 minutes. Referrals: Kelsie Huff MD [Primary Care Provider] - Disposition: HOME - Home Medications Comprehensive Discharge Medication List: Ambulatory Orders Ascorbic Acid [Vitamin C -] 500 mg PO BID #14 tablet 08/15/19 Zinc Sulfate [Orazinc] 220 mg PO BID #14 capsule 08/15/19 Aspirin [ASA -] 81 mg PO DAILY #30 tab.chew 12/21/19 Atorvastatin Ca [Lipitor] 80 mg PO HS #30 tablet 12/21/19 Skytop-3 Acid Ethyl Esters [Lovaza -] 2 gm PO BID #120 cap 12/21/19 Pantoprazole Sodium [Protonix -] 40 mg PO DAILY #30 tablet.ec 12/21/19 Ramipril [Altace] 2.5 mg PO DAILY #30 capsule 12/21/19
[2019-12-21] MEDS ORDERED: PT OWN MED DRAWER 7, Y5N ONE (09:35)
[2019-12-21 09:49] VITALS: BP 145/72; PULSE 78; TEMP 97.5
[2019-12-21] MEDS: ENOXAPARIN NA (PORCINE) 40 MG/0.4 ML DISP.SYRIN SQ SCH (09:50)
[2019-12-21] MEDS: PANTOPRAZOLE 40 MG TABLET PO SCH (09:50)
[2019-12-21] MEDS: ASPIRIN 81 MG CHEWABLE TABLETS PO SCH (09:50)
[2019-12-21] MEDS: RAMIPRIL 2.5 MG CAPSULE (FP) PO SCH (09:51)
[2019-12-21] MEDS: OMEGA-3 ACID ETHYL ESTERS (FATTY-ACIDS) 1 GM CAPSULE (FP) PO SCH (09:51)
--- NOTE | 2019-12-21 12:20 | PN ---
Progress Note (short form) - Note Progress Note: 79 Year old panamanian speaking female, saw with her daughter. She came to hospital or slurring of speech and facial droopiness , which resolved. She was taking simvastatin 40 mg at home, no aspirin. Patient denies smoking or previous tia. She has ct head which was unremarkable, mri of brain is uremarkable. Her carotid shows 70 percent stenosis. Patient is feeling back to normal. continue lipitor and aspirin no stenosis on cta, no new complain Neurological examination Alert oriented x 2, speech is normal, vss, afebrile eomi, pupils reactive and no face asymmetry moving all ext sensation is normal ct head, mri is normal carotid ultrasound left ica 70 percent stenosis Assessment/Plan TIA, with left ica stenosis, no new symptoms Plan: continue lipitor and asprin - vascular surgery consult appreciated and cta did not show any stenosis - life style modifications - follow u outpatient Thanking you so much Jimi Holloway MD
== END 2019-12-21 11:07 | disposition home or self-care (01) | DRG 69 ==
LOC: JER 15:44 → JERBED 17:48 → J4S 12-18 00:11
PROVIDERS: ADMIT Internal Medicine; ATTEND Internal Medicine
DX: G45.9 Transient cerebral ischemic attack, unspecified (principal); E78.1 Pure hyperglyceridemia; E11.9 Type 2 diabetes mellitus without complications; M48.061 Spinal stenosis, lumbar region without neurogenic claudication; R29.810 Facial weakness; E78.5 Hyperlipidemia, unspecified; F03.90 Unspecified dementia, unspecified severity, without behavioral disturbance, psychotic disturbance, mood disturbance, and anxiety; Z86.19 Personal history of other infectious and parasitic diseases; Z90.710 Acquired absence of both cervix and uterus; Z90.49 Acquired absence of other specified parts of digestive tract
CPT/HCPCS: 36415; 70450-TC; 70498-TC; 70551-TC; 71045-TC-FY; 80053; 80061; 81003; 82550; 82962; 83721; 84443; 84478; 84484; 85025; 85379; 85610; 85730; 86850; 86900; 86901; 93005; 93010; 93880-TC; 93970-TC; 97116-GP; 97161-GP; 99285-25; Q9967; U0003